=== PATIENT | female | born 1940 | race Caucasian/White ===

== ENCOUNTER 2023-10-18 19:25 | Inpatient (IN) | payer OTHER, SELFPAY ==
[2023-10-18 11:55] VITALS: BP 98/66
[2023-10-18 12:17] LABS: % Basophils 0.4 % (0-2); % Eosinophils 0.6 % (0-6); % Immature Granulocytes 0.8 % (0-0.5); % Monocytes 7.8 % (1.7-9.3); % Neutrophils 61.4 % (42.2-75.2); Absolute Lymphocytes 1.4 10^3/uL (1.2-3.4); Absolute Monocytes 0.4 10^3/uL (0.1-0.6); Absolute Neutrophils 2.9 10^3/uL (1.4-6.5); Hemoglobin 12.1 g/dL (12.0-16.0); Mean Corp Hgb Conc. 33.6 g/dL (33.0-37.0); Mean Corpuscular Hgb 24.1 pg (27.0-31.0); Mean Corpuscular Volume 71.7 fL (81.0-99.0); Nucleated Red Blood Cells % 0 %; Red Blood Cell Count 5.02 10^6/uL (4.20-5.40); White Blood Cell Count 4.8 10^3/uL (4.8-10.8)
[2023-10-18 12:25] LABS: ALT (SGPT) 12 U/L (0-35); AST (SGOT) 34 U/L (14-36); Albumin 3.8 g/dl (3.5-5.0); Alkaline Phosphatase 67 U/L (38-126); Blood Urea Nitrogen 17 mg/dl (7-17); Calcium 9.3 mg/dl (8.4-10.2); Carbon Dioxide 22 mmol/L (22-30); Chloride 98 mmol/L (98-107); Glucose 107 mg/dl (70-99); Lipase 171 U/L (23-300); Potassium 3.3 mmol/L (3.5-5.1); Sodium 130 mmol/L (135-145); Total Bilirubin 1.1 mg/dl (0.2-1.3); Total Protein 6.4 g/dl (6.3-8.2); eGFR > 60.00
--- NOTE | 2023-10-18 13:16 | ED.GENMED ---
History of Present Illness
General
Chief Complaint: Weakness
Source: patient
Exam Limitations: none
Time Seen by Provider: 10/18/23 13:14
Nursing documentation reviewed up to this point in time: agreed with
Travel History
Have you had any contact with someone who has COVID-19?: No
Do you have any symptoms of coronavirus? Fever > 100 degrees, chills, cough, shortness of breath, sore throat, loss of taste or smell, muscle aches, or headache?: No
History of Present Illness
History of Present Illness:
83-year-old female with history of A-fib on aspirin, lives alone in [facility]. Daughter who is at bedside states she calls her every morning. 3 weeks ago patient had a stomach bug with vomiting and diarrhea for 2 to 3 days, that
subsided. She has had diminished appetite with intermittent vomiting since. Daughter states the last several days that she is called her she sounded extremely weak and just not herself. Daughter drove out to pick her up yesterday and found her to
be very frail, fatigued, no appetite and with a seemingly significant weight loss.
Patient states she has been having upper abdominal pains for the past 3 to 4 days. She denies dysuria, urgency or frequency. She denies change in the color of her stool. She denies fever or chills. She states her baseline weight is 130 and
recently she weighed herself at 111 pounds.
Past History
Past History
ED Past Medical History: Arrthythmia (A fib on ASA)
ED Past Surgical History: Gynecological and Orthopedic
Social History
Tobacco: Non-smoker
Alcohol: None
Personal:
Living: alone (in [facility] daughter picked her up yesterday and brought her to stay with her)
Review of Systems
Review of Systems
Allergies reviewed?: Yes
All Other Systems: ROS reviewed and negative except as documented in HPI and ROS
Constitutional: Reports fatigue; Denies fever
Respiratory: Denies trouble breathing
Cardiac: Denies chest pain
ABD/GI: Reports abdominal pain and nausea; Denies vomiting, diarrhea, bloody stools, black stools or anorexia
: Denies dysuria, flank pain, difficulty voiding or urgency
Musculoskeletal: Denies edema
Skin: Reports no symptoms
Neurological: Reports no symptoms
Phy Exam
Physical Exam
Physical Exam:
GENERAL: No acute distress. Elderly and frail. A&Ox3.
CONSTITUTIONAL: Afebrile.
EYES: PERRL, conjunctivae normal
Neck: Supple
ENMT: moist mucus membranes, Pharynx nl
RESPIRATORY: Regular respirations, nonlabored, lungs clear.
CARDIOVASCULAR: Regular rate and rhythm, no murmurs, no rubs.
GI: Soft, generally tender, mild distention, hypoactive BS
Rectal: Brown heme positive stools
MUSCULOSKELETAL: Moves with ease. Well perfused. No edema
SKIN: Warm, dry, pale
PSYCH: Normal mood and affect. Well kept, interactive and appropriate
NEUROLOGIC: Awake, alert and oriented. No focal neurological deficits
Course
Orders/Labs/Results
Orders:
Orders
10/18/23 12:03
Complete Blood Count/With Diff Urgent
Comprehensive Metabolic Panel Urgent
Lipase Urgent
10/18/23 14:04
Urinalysis Reflex To Culture Urgent
Date Specimen was Collected: 10/18/23
Time Specimen was Collected: 13:18
Urine Microscopic Reflex Cult Urgent
Urine Culture Urgent
JUANITO Source: U
Specimen Description:
Date Specimen was Collected: 10/18/23
Time Specimen was Collected: 13:18
10/18/23 14:26
Ondansetron Injectable [Zofran] 4 mg IV NOW STA
10/18/23 14:27
CT Abd/pel W Iv And Oral Contr Urgent
Comment:
Reason For Exam: general abd pain, w loss, stool lisa +
0.9% Sodium Chloride 500 ml [Nss] 500 ml IV BOLUS
Iohexol [Omnipaque] See Protocol PO NOW STA
10/18/23 15:43
CefTRIAXone [Rocephin] 1,000 mg IV NOW STA
10/18/23 17:57
ColoRectal Surgery Consult Routine
Consulting Provider: Jose A Hay
Was physician already notified: Yes
10/18/23 18:04
Potassium Chloride [KCl] 40 meq Dextrose 5%/Water 250 ml [D5w] 250 ml IV NOW
10/18/23 18:08
INR [Prothrombin Time] Routine
10/18/23 18:35
CARDIOLOGY CONSULT Routine
Consulting Provider: Keenan De
Was physician already notified: Yes
10/18/23 18:39
Admit/Transfer Patient As Directed
Co-Sign Provider:
Level of Care: Inpatient admission
Assign to:: Telemetry
Physician / Group: Steven/hospitalist
Diagnosis: colon mass, SBO
Reason for Telemetry: Arrhythmia
Date to Stop Telemetry: 10/21/23
Time to Stop Telemetry: 11:00
Reason for Hospitalization: colon mass, SBO
Expected length of stay greater than two midnights?: Yes
ELOS- Estimated Length of Stay in days: 5
I certify the patient meets the requirements for IP care: Yes
10/18/23 18:40
Code Status As Directed
Resuscitation Status: Full Code
10/21/23 11:00
DC Protocol for Telemetry ONCE
Abnormal Lab Results
10/18/23 10/18/23
12:03 14:04
Hct 36.0 L %
(37.0-47.0)
MCV 71.7 L fL
(81.0-99.0)
MCH 24.1 L pg
(27.0-31.0)
RDW 16.0 H %
(11.5-14.5)
Immature Gran % 0.8 H %
(0-0.5)
Sodium 130 L mmol/L
(135-145)
Potassium 3.3 L mmol/L
(3.5-5.1)
Glucose 107 H mg/dl
(70-99)
Urine Ketones 1+ A
(Negative)
Ur Occult Blood Reflex Trace A
(Negative)
Urine Nitrite (Reflex) Positive A
(Negative)
Urine Bilirubin 1+ A
(Negative)
Urine Urobilinogen 2+ A
(Neg - 1+)
Leukocyte Esterase Rfl 2+ A
(Negative)
Urine RBC 3-6 A /HPF
(0-2)
Urine WBC (Reflex) 11-15 A /HPF
(0-5)
Urine Bacteria (Reflex) Many A
(Negative)
10/18/23 12:03
10/18/23 12:03
Vital Signs
Initial and Last Documented VS:
Initial Vital Signs
Temp Pulse Resp BP Pulse Ox
97.9 F 75 18 98/66 100
10/18/23 11:55 10/18/23 11:55 10/18/23 11:55 10/18/23 11:55 10/18/23 11:55
Last Documented Vital Signs
Temp Pulse Resp BP Pulse Ox
97.9 F 73 18 114/73 99
10/18/23 11:55 10/18/23 17:15 10/18/23 17:15 10/18/23 17:15 10/18/23 17:15
MDM/Problems Addressed
Differential Diagnosis Includes:
UTI, bowel obstruction, PUD,
MDM/Problems Addressed:
83-year-old female with history of A-fib on aspirin, lives alone in [facility]. Daughter who is at bedside states she calls her every morning. 3 weeks ago patient had a stomach bug with vomiting and diarrhea for 2 to 3 days, that
subsided. She has had diminished appetite with intermittent vomiting since. Daughter states the last several days that she is called her she sounded extremely weak and just not herself. Daughter drove out to pick her up yesterday and found her to
be very frail, fatigued, no appetite and with a seemingly significant weight loss.
Patient states she has been having upper abdominal pains for the past 3 to 4 days. She denies dysuria, urgency or frequency. She denies change in the color of her stool. She denies fever or chills. She states her baseline weight is 130 and
recently she weighed herself at 111 pounds.
Afebrile, NAD
10/18/2023 1429 PM
Tender to palpate across upper abdomen.
Stool brown, heme positive
CBC with no clinically significant abnormality
CMP with mild hyponatremia left mild hypokalemia otherwise normal
UA: Positive nitrites, positive leukocytes
10/18/2023 1541 PM urine microscopic back: 11-15 WBCs, many bacteria. Urine culture pending
Will give a dose of Rocephin IV. Patient gets hives with penicillin years ago, has taken cephalosporins in the past.
10/18/[address] abdomen pelvis with p.o. and IV contrast radiology report received: Bowel wall thickening of the cecum and proximal ascending colon consistent with malignancy until proven otherwise. Direct visualization is recommended.
There is subsequent distention of the small bowel loops proximal to the ileocecal valve, fluid-filled, consistent with partial small bowel obstruction due to the mass at the ascending colon and ileocecal valve. The appendix appears grossly within
normal limits.
Small amount of free fluid in the pelvis.
Solid organs unremarkable.
Pt and daughter notified of SBO and need for further exploration of possible cause
Plan: Admit to hospitalist partial small bowel obstruction:, Abdominal mass, UTI
Hospitalist notified of admission
*Critical Care Note
Total Time (30-74mins, 75-104mins- exclusive of procedures): Not Applicable
ED Attending Note
-
Portions of this chart may have been created with voice recognition software.� Occasional wrong word or��sound alike� substitutions may have occurred due to the inherent limitations of voice recognition software.
Discharge Plan
Departure
Patient Disposition: Admit
Date of Disposition: 10/18/23
Time of Disposition: 17:50
Admit to: Med/Surg
Presentation/result/management discussed w/ accepting MD/DO: Hospitalist
Condition: Fair
Discharge Problem:
SBO (small bowel obstruction), Abdominal mass
Prescriptions:
No Action
Theragen Tablet
1 tab PO DAILY
aspirin 81 mg Tablet,Delayed Release (Dr/Ec)
81 mg PO DAILY
warfarin 3 mg Tablet
3 mg PO SUWE@1700
warfarin 2 mg Tablet
2 mg PO SUMOTUTHFR@1700
Ocuvite Tablet
1 tab PO DAILY
rosuvastatin [Crestor] 5 mg Tablet
5 mg PO QPM
Multaq 400 mg Tablet
400 mg PO BID
omega 8-rmi-sow-fish oil [Fish Oil] 1,200 (144-216) mg Capsule
1 cap PO DAILY
Referrals:
UNKNOWN - PT DOES,NOT KNOW [Family Provider] -
Interventions
Interventions:
*Risk Screen - Suicide Last Done: 10/18/23 12:48
*General Assessment Last Done: 10/18/23 12:48
*Neglect/Abuse Screening Last Done: 10/18/23 12:48
ED- Fall Risk Assessment Last Done: 10/18/23 12:48
*ED COVID-19 Vaccine History Last Done: 10/18/23 12:48
ED- Cardiac Assessment Last Done: 10/18/23 12:48
ED- Neurological Assessment Last Done: 10/18/23 12:48
ED- Pulmonary Assessment Last Done: 10/18/23 12:48
[2023-10-18 14:16] LABS: Urine Albumin Trace (Neg - Trace); Urine Bilirubin 1+ (Negative); Urine Character Slightly Cloudy (Clear); Urine Color Yellow; Urine Glucose Negative (Negative); Urine Ketone 1+ (Negative); Urine Leukocyte 2+ (Negative); Urine Nitrite Positive (Negative); Urine Occult Blood Trace (Negative); Urine Specific Gravity 1.015 (<1.030); Urine Urobilinogen 2+ (Neg - 1+)
[2023-10-18 14:21] VITALS: BP 110/67
[2023-10-18 14:24] LABS: Urine Amorphous Seen
[2023-10-18 14:26] LABS: Urine Bacteria Many (Negative)
[2023-10-18] MEDS: OMNIPAQUE 50 ML PO (14:43)
[2023-10-18] MEDS: ZOFRAN 4 MG IV (14:43)
[2023-10-18] MEDS: NSS 500 IV (14:44)
[2023-10-18] MEDS: ROCEPHIN 1000 MG IV (16:11)
[2023-10-18 17:15] VITALS: BP 114/73
--- NOTE | 2023-10-18 17:57 | HPS.HSE ---
Family Physician
-
Family Physician: NOT KNOW UNKNOWN - PT DOES
Chief Complaint
-
Weakness, weight loss, decreased appetite, nausea and vomiting
History of Present Illness
HPI: 83-year-old female with history of A-fib on aspirin, lives alone in [facility] (daughter states she calls her every morning); p/w mild abdominal pain, decreased appetite, intermittent vomiting, and generalized weakness. She has also
noted significant unintentional weight loss (from baseline 130 pound to 111 pounds).
She denies to urinary symptoms, no fever/chills, chest pain/shortness of breath.
Medical History
Past Medical History
Past Medical History: Reports Other
Additional Past Medical History:
Atrial fibrillation
Past Surgical History: Reports Other
Additional Past Surgical History:
Ablation for atrial fibrillation
Right knee placement
section
Social History
Tobacco: Non-smoker
Alcohol: None
Living: Alone
Family History
Family History: Cancer (Grandfather had colon cancer)
Allergies / Home Medications
Allergies reflects when Allergies were last updated in [facility].
Home Medications with original date entered in [facility]
Allergy/Medication List:
Allergies
Allergy/AdvReac Type Severity Reaction Status Date / Time
Penicillins Allergy Unknown Verified 10/18/23 11:54
Sulfa (Sulfonamide Allergy Unknown Verified 10/18/23 11:54
Antibiotics)
Home Medications
aspirin 81 mg tablet,delayed release 81 mg PO DAILY 10/18/23
dronedarone 400 mg tablet (Multaq) 400 mg PO BID 10/18/23
omega 2-tdf-msr-fish oil 1,200 mg (144 mg-216 mg) capsule (Fish Oil) 1 cap PO DAILY 10/18/23
rosuvastatin 5 mg tablet (Crestor) 5 mg PO QPM 10/18/23
therapeutic multivitamin 1 tab PO DAILY 10/18/23
vitamin A-vitamin C-vit E-min tablet 1 tab PO DAILY 10/18/23
warfarin 2 mg tablet 2 mg PO SUMOTUTHFR@1700 10/18/23
warfarin 3 mg tablet 3 mg PO SUWE@1700 10/18/23
Review of Systems
-
Constitutional: Reports See HPI
Abdomen/GI: Reports See HPI, Abdominal Pain, Nausea and Vomiting
Physical Exam
Vital Signs
Vital Signs
Temp Pulse Resp BP Pulse Ox
36.6 C 73 18 114/73 99
10/18/23 11:55 10/18/23 17:15 10/18/23 17:15 10/18/23 17:15 10/18/23 17:15
Physical Exam
General: Well Developed, No Apparent Distress, Comfortable, Conversant and Appears Chronically Ill
HEENT: NormoCephalic, Moist mucous membranes and Atraumatic
Respiratory: Clear and Non Labored Respirations; No Accessory Resp Muscle Use
Cardiac: S1/S2 and Regular Rhythm; No Murmur or Rub
GI: Soft, Non Tender, Normal Bowel Sounds and Distended; No Organomegaly
Rectal: Deferred by Provider
Musculoskeletal: No Clubbing, No Cyanosis and No Edema
Skin: No Rash
Neuro: Awake, Alert and Oriented
Psych: Calm and Intact Judgment/Insight
Laboratory Results
-
10/18/23 12:03
10/18/23 12:03
Laboratory Results
Total Bilirubin 1.1 mg/dl (0.2-1.3) 10/18/23 12:03
AST 34 U/L (14-36) 10/18/23 12:03
ALT 12 U/L (0-35) 10/18/23 12:03
Alkaline Phosphatase 67 U/L (38-126) 10/18/23 12:03
Lipase 171 U/L (23-300) 10/18/23 12:03
Data Reviewed
-
CT Scan: Report Reviewed by me, Discussed with Patient and Discussed with Family
Lab Data: Labs Reviewed by me
Impression/Plan
-
HPI: 83-year-old female with history of A-fib on aspirin, lives alone in [facility] (daughter states she calls her every morning); p/w mild abdominal pain, decreased appetite, intermittent vomiting, and generalized weakness. She has also
noted significant unintentional weight loss (from baseline 130 pound to 111 pounds).
She denies to urinary symptoms, no fever/chills, chest pain/shortness of breath.
In ER, her CT AP obtained is concerning for proximal ascending colon and cecal mass, with associated proximal small bowel obstruction.
CT AP:
1. � Bowel wall thickening of the cecum and proximal ascending colon consistent with malignancy until proven otherwise. Direct visualization is recommended.
2. � There is subsequent distention of the small bowel loops proximal to the ileocecal valve, fluid-filled, consistent with partial small bowel obstruction due to the mass at the ascending colon and ileocecal valve. The appendix appears grossly
within normal limits.
3. � Small amount of free fluid in the pelvis.
4. � Solid organs unremarkable.
A/P:
# Abdominal pain, unintentional weight loss, generalized weakness, decreased appetite, nausea/intermittent vomiting; likely due to underlying proximal ascending colon and cecal mass with associated proximal small bowel obstruction.
N.p.o. for now
Colorectal surgery eval
Cardiology consult for preop clearance and A-fib management
Patient will need eventual oncology consult
# A-fib (unclear type) on Coumadin
Hold prior to admission Coumadin
Check INR
monitor daily INR level
Cardiology consult for preop clearance and A-fib management
# Hypokalemia
Replete IV
# Asymptomatic bacteriuria
Patient without urinary symptoms
Urine culture was sent in ER, follow-up
Status post 1 dose of ceftriaxone, hold further antibiotic for now
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
FC
[2023-10-18 18:36] LABS: INR 2.41; PT 26.1 Sec (11.4-14.6)
[2023-10-18] MEDS: KCL 270 MEQ IV (19:05)
[2023-10-18 20:18] VITALS: BP 121/72
[2023-10-18 22:01] VITALS: BP 124/67; BMI 19.3
[2023-10-18 22:16] VITALS: BMI 19.3
[2023-10-18 23:00] VITALS: BP 105/56
[2023-10-18] MEDS: NSS 1000 IV (23:15)
[2023-10-19] VITALS (17 sets, daily range): BP systolic 99–120; BP diastolic 48–60; BMI 19.3
[2023-10-19] MEDS: ZOFRAN 4 MG IV (03:39)
[2023-10-19 06:08] LABS: Hematocrit 31.7 % (37.0-47.0); Hemoglobin 10.2 g/dL (12.0-16.0); Mean Corp Hgb Conc. 32.2 g/dL (33.0-37.0); Mean Corpuscular Hgb 23.8 pg (27.0-31.0); Mean Corpuscular Volume 74.1 fL (81.0-99.0); Mean Platelet Volume 9.4 fL (7.4-10.4); Platelet Count 263 10^3/uL (130-400); Red Blood Cell Count 4.28 10^6/uL (4.20-5.40); Red Cell Dist. Width 16.3 % (11.5-14.5); White Blood Cell Count 6.5 10^3/uL (4.8-10.8)
[2023-10-19 06:19] LABS: INR 2.62; PT 27.9 Sec (11.4-14.6)
[2023-10-19 06:36] LABS: Blood Urea Nitrogen 13 mg/dl (7-17); Calcium 8.6 mg/dl (8.4-10.2); Carbon Dioxide 22 mmol/L (22-30); Chloride 99 mmol/L (98-107); Estimated Creatinine Clearance 41 ml/min; Glucose 99 mg/dl (70-99); Potassium 3.7 mmol/L (3.5-5.1); Sodium 131 mmol/L (135-145); eGFR > 60.00
--- NOTE | 2023-10-19 07:26 | CON.CAR ---
Addendum entered and electronically signed by Conor Mejias DO 10/19/23 17:26:
I saw and examined the patient.
The Electrical Engineering Intern's note was reviewed and I agree with the note.
Comment:
Plan:
Pt denied chest or palpitations. She has had a recent stress test done in the last 1-2 yrs for hx AFib that was ok she states.
Requested records. Pt with hx of PVI.
Check echo. As long as there are not significant findings with her echo she is acceptable risk for surgery.
Remains in sinus on Multaq. Anticoagulation held in anticipation of procedure.
She is moderate risk given comorbidities and urgent need for surgery but acceptable as she is compensated.
Reviewed with pt and daughter at bedside.
Original Note:
Consultation
Consultation Request
Date/Time Consultation Requested: 10/18/23 at 1835
Date/Time Consultation Performed: 10/19/23 at 0730
Requesting Provider: Dr. Rosario
Performing Provider: Dr. Mejias
Reason for Consultation: Pre-operative cardiovascular evaluation
Medical History
-
History of Present Illness:
Patient came to [facility] yesterday with weight loss and is now admitted for colon surgery due to malignancy and cardiology has been consulted for preoperative evaluation. Patient lives in [place], [place] which is about 2 hours away from , but her
daughter lives locally in [place], [place] and brought patient to [facility] yesterday after never being previously evaluated in the system. Patient has been treated in the [facility] system and followed by cardiology there for a h/o paroxysmal Afib. Patient
does not have access to a portal with patient information, but called her senior production manager's office to get records and they in turn asked for a medical records release further delaying access to her pertinent cardiac history. Records are being faxed
now.
PMH:
Paroxysmal Afib
Chronic warfarin OAC
Chronic Multaq therapy
Past Medical History
Past Medical History: Other (in HPI)
Past Surgical History: and Orthopedic
Social History
Tobacco: Non-Smoker
Alcohol: None
Drug: None
Living: Alone
Family History
Family History: Reviewed & Not Pertinent
Allergies / Home Medications
Allergy/AdvReac Type Severity Reaction Status Date / Time
Penicillins Allergy Unknown Verified 10/18/23 11:54
Sulfa (Sulfonamide Allergy Unknown Verified 10/18/23 11:54
Antibiotics)
Medication Instructions Recorded Confirmed Type
aspirin 81 mg tablet,delayed 81 mg PO DAILY 10/18/23 10/18/23 History
release
dronedarone 400 mg tablet (Multaq) 400 mg PO BID 10/18/23 10/18/23 History
omega 6-two-grm-fish oil 1,200 mg 1 cap PO DAILY 10/18/23 10/18/23 History
(144 mg-216 mg) capsule (Fish Oil)
rosuvastatin 5 mg tablet (Crestor) 5 mg PO QPM 10/18/23 10/18/23 History
therapeutic multivitamin 1 tab PO DAILY 10/18/23 10/18/23 History
vitamin A-vitamin C-vit E-min 1 tab PO DAILY 10/18/23 10/18/23 History
tablet
warfarin 2 mg tablet 2 mg PO SUMOTUTHFR@1700 10/18/23 10/18/23 History
warfarin 3 mg tablet 3 mg PO SUWE@1700 10/18/23 10/18/23 History
Review of Systems
-
History Source: Patient
All other systems: Negative unless noted
Physical Exam
Vital Signs
Temp Pulse Resp BP Pulse Ox
99.1 F 66 16 105/58 97
10/19/23 03:25 10/19/23 03:25 10/19/23 03:25 10/19/23 03:25 10/19/23 03:25
GEN: NAD. AAO to person, place and situation
HEENT: EOMI, MMM
LUNGS: Clear anterolaterally
CV: Reg, no murmur
ABD: soft, BS+
EXT: No clubbing, cyanosis, lesions or edema B/L
NEURO: Gross non-focal
SKIN: Warm, dry and pink. No rash
Lab Results
10/19/23 05:43
10/19/23 05:43
Impression / Plan
-
PCP: In [place], [place]
Cardiology: Dr. Hernandez at [facility]
Impression:
Admitted with newly diagnosed proximal ascending colon and cecal mass 10/18/23
Weight loss
Paroxysmal Afib
Chronic warfarin OAC
Chronic Multaq therapy
Hypokalemia
Hyponatremia
Plan:
-Patient came to [facility] yesterday with weight loss and is now admitted for colon surgery due to malignancy and cardiology has been consulted for preoperative evaluation. Patient lives in [place], [place] which is about 2 hours away from , but her
daughter lives locally in [place], [place] and brought patient to [facility] yesterday after never being previously evaluated in the system. Patient has been treated in the [facility] system and followed by cardiology there for a h/o paroxysmal Afib. Patient
does not have access to a portal with patient information, but called her senior production manager's office to get records and they in turn asked for a medical records release further delaying access to her pertinent cardiac history. Records are being faxed
now.
-Check ECG, none performed thus far this admission.
-Records requested from her senior production manager in [place] and they required a signed records release be sent before sending the records which is further delaying cardiac clearance. Await arrival of records.
-If recent echo is not included in records then will obtain in AM.
-There is a h/o paroxysmal Afib. Patient is in SR on tele. Will follow.
-Would continue Multaq 400 mg BID for now in an effort to maintain SR.
-Warfarin is being reversed with FFP by Hospitalist attending. There is no h/o thromboembolic event.
-If patient will be NPO post-op then would add Lopressor 5 mg IV q 6 hours.
--- NOTE | 2023-10-19 07:59 | W.PN.HOSP.TC ---
Today's Communication/Plan
-
FFP to reverse INR. Cardiology for preop eval. Plan for colon surgery
Assessment / Plan
Assessment / Plan
Physical exam:
General: Underweight. Chronically ill.
HEENT: Normocephalic, Atraumatic and Moist Mucous Membranes
Respiratory: Clear to Auscultation; Negative Wheezes, Rales or Rhonchi
Cardiac: Regular Rhythm and S1/S2
GI: Soft, Nontender and Nondistended
Musculoskeletal: No Clubbing, No Cyanosis and No Edema
Neuro: Awake, Alert and Oriented
Psych: Calm
A/P:
A/P:
# Abdominal pain, unintentional weight loss, generalized weakness, decreased appetite, nausea/intermittent vomiting; likely due to underlying proximal ascending colon and cecal mass with associated proximal small bowel obstruction. Likely
malignancy:
N.p.o. for now
Colorectal surgery eval
Cardiology consult for preop eval and A-fib management
Obtain twelve-lead EKG preop
Updated daughter at bedside today
Discussed with colorectal surgery and planning to do surgery over the next 24 hours.
# Paroxysmal A-fib:
Hold prior to admission Coumadin
Check INR in 2.62 today
Transfuse with 2 to 4 units of FFP's to reverse INR
Recheck INR in a.m.
Cardiology consult for preop clearance and A-fib management
# Hypokalemia:
Potassium 3.7 today
# Asymptomatic bacteriuria
E. coli in the urine
Agree, no need for antibiotics unless symptomatic.
Monitor temp and WBC
#Moderate protein calorie malnutrition/underweight:
Monitor calorie intake when appropriate
#Anemia:
Hemoglobin 10.2 today
There could be an element of dilutional component but obtain anemia workup in am
Monitor hemoglobin closely
#Hyponatremia:
Sodium 131 today
Continue to monitor
DVT ppx:
Discontinue Lovenox (INR therapeutic) and add SCDs
CODE STATUS:
Full code
Total time spent on today's encounter was 52 minutes which included time spent in counseling the patient/family regarding diagnosis and treatment plan as listed above, goals of care, and symptom management. Case was discussed with nursing staff,
specialists, and care coordinators/case management. All labs and imaging personally reviewed by me. Remainder the time spent in detailed review of previous records, lab data, imaging, and other medical provider documentation.
Anticipated Discharge: > 48 hours
Subjective/Interval History
-
Date of Service: October 19, 2023
Patient alert and oriented today. Denies chest pain or shortness of breath. Denies vomiting today.
Objective Data
-
Labs:
Laboratory Results
10/19/23
05:43
WBC 6.5
Hgb 10.2 L
Hct 31.7 L
Plt Count 263
PT 27.9 H
INR 2.62
Sodium 131 L
Potassium 3.7
Chloride 99
Carbon Dioxide 22
BUN 13
Creatinine 0.8
Glucose 99
Calcium 8.6
Vital Signs:
Vital Signs
Temp Pulse Resp BP Pulse Ox
99.1 F 66 16 105/58 97
10/19/23 03:25 10/19/23 03:25 10/19/23 03:25 10/19/23 03:25 10/19/23 03:25
I&O
10/18/23 10/19/23 10/20/23
06:59 06:59 06:59
Intake Total 480 / 480
Balance 480 / 480
Review of Systems
-
All other systems: Reviewed and negative
[2023-10-19] MEDS: ASPIR LOW (ENTERIC COATED) 81 MG PO (08:12)
--- NOTE | 2023-10-19 08:37 | CON.CRS ---
Addendum entered and electronically signed by Marko Cui MD 10/19/23 14:33:
I saw and examined the patient.
The PA's note was reviewed and I agree with the note.
Comment:
Patient seen in a.m. with PA.
History, vitals, labs, and imaging reviewed. Patient seen and examined with daughter at bedside.
83-year-old female with obstructing cecal mass confirmed radiographically. 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 No obvious hepatic metastases on CT. It is however quite bulky and there is certainly obstruction related to it radiographically. She has
had Colonoscopies in the past but it has been at least 5 years or more. Denies history of polyps. Denies family or personal history of colon cancer. She is also fully anticoagulated on Coumadin with an INR of 2.6. I discussed the situation with
the patient and her daughter in detail. 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 Recommended consideration for open right colectomy after reversal of anticoagulation. I have tentatively posted the surgery for
tomorrow late morning/early afternoon. I related that if surgery is not performed she risks worsening obstruction/perforation. Communicate with Dr. Kramer of the hospitalist service who will reverse her INR today. Will hold on NG tube placement
today given risk of nasopharyngeal bleeding, however anticipate having 1 placed tomorrow morning preoperatively to minimize the risk of aspiration. Operation itself was discussed with the patient and her daughter in detail including risk and
benefits. Risk discussed included but were not limited to bleeding infection anastomotic leak anastomotic stricture ureteral injury bowel or solid organ injury hernia formation recurrence of the cancer if one is present and anesthetic risks. The
patient agrees to proceed. All questions answered.
Thanks.
Original Note:
Consultation
-
Date/Time Consultation Requested: 10/18/2023, 17:57
Date/Time Consultation Performed: 10/19/2023, 09:30
Requesting Provider: Ragini Harris MD
Performing Provider: Marko Cui MD
Reason for Consultation: cecal mass
Medical History
-
Chief Complaint: Abdominal pain
History of Present Illness:
83-year-old female presents the emergency department on 10/18/2023 complaining of abdominal pain, decreased appetite, vomiting, and generalized weakness. She has also lost about 19 pounds in the past month. The patient lives alone in [place] and her daughter calls her every morning. The patient had a stomach virus 3 weeks ago with diarrhea for 2 or 3 days which has resolved. Since then she has had intermittent vomiting. The daughter called her a few days ago and she did
not sound like herself, and the daughter drove out to see her and took her back to [facility]. She is currently on Coumadin due to atrial fibrillation and her INR is 2.62.
The patient states her last colonoscopy was 'at least 5 years ago' and there were no findings on it. Her grandfather had colon polyps but is unable to elaborate further. She had a previous but no other abdominal surgeries. Her bowel
movements are daily and are unchanged. She denies bloody or dark stools. She denies feeling bloated and currently had no pain.
In the ER her WBC is 4.8. A CT shows bowel wall thickening of the cecum and proximal ascending colon consistent with malignancy until proven otherwise. Direct visualization is recommended. There is subsequent distention of the small bowel loops
proximal to the ileocecal valve, fluid-filled, consistent with partial small bowel obstruction due to the mass at the ascending colon and ileocecal valve. The appendix appears grossly within normal limits. Given this finding, we have been consulted
for further surgical opinion.
Past Medical History
Past Medical History: Arrhythmias (Atrial fibrillation)
Past Surgical History: Cardiac (Ablation for atrial fibrillation), and Orthopedic (Right knee placement)
Social History
Tobacco: Non-Smoker
Alcohol: None
Drug: None
Family History
Family History: Reviewed & Not Pertinent
Allergies / Home Medications
Allergy/AdvReac Type Severity Reaction Status Date / Time
Penicillins Allergy Unknown Verified 10/18/23 11:54
Sulfa (Sulfonamide Allergy Unknown Verified 10/18/23 11:54
Antibiotics)
Medication Instructions Recorded Confirmed Type
aspirin 81 mg tablet,delayed 81 mg PO DAILY 10/18/23 10/18/23 History
release
dronedarone 400 mg tablet (Multaq) 400 mg PO BID 10/18/23 10/18/23 History
omega 4-jmq-kmu-fish oil 1,200 mg 1 cap PO DAILY 10/18/23 10/18/23 History
(144 mg-216 mg) capsule (Fish Oil)
rosuvastatin 5 mg tablet (Crestor) 5 mg PO QPM 10/18/23 10/18/23 History
therapeutic multivitamin 1 tab PO DAILY 10/18/23 10/18/23 History
vitamin A-vitamin C-vit E-min 1 tab PO DAILY 10/18/23 10/18/23 History
tablet
warfarin 2 mg tablet 2 mg PO SUMOTUTHFR@1700 10/18/23 10/18/23 History
warfarin 3 mg tablet 3 mg PO SUWE@1700 10/18/23 10/18/23 History
Review of Systems
-
History Source: Patient and Family
Constitutional: Weight Loss
Abdomen/GI: Abdominal Pain, Vomiting and Anorexia
A 10 point review of systems was completed, and was negative except as per HPI.
Physical Exam
Vital Signs
Temp 98.7 F 10/19/23 07:50
Pulse 71 10/19/23 07:50
Resp Rate 18 10/19/23 07:50
Blood pressure 115/57 10/19/23 07:50
SaO2 97 10/19/23 07:50
10/18/23 10/19/23 10/20/23
06:59 06:59 06:59
Actual Weight 47.797 kg
Body Mass Index (BMI) 19.3
Lab Results / Allergies
10/19/23 05:43
10/19/23 05:43
WBC 6.5 10^3/uL (4.8-10.8) 10/19/23 05:43
Hgb 10.2 g/dL (12.0-16.0) L 10/19/23 05:43
Hct 31.7 % (37.0-47.0) L 10/19/23 05:43
Plt Count 263 10^3/uL (130-400) 10/19/23 05:43
Abs Immat Gran (auto) 0.0 10^3/uL (0-0.05) 10/18/23 12:03
Neutrophils % 61.4 % (42.2-75.2) 10/18/23 12:03
Allergy/AdvReac Type Severity Reaction Status Date / Time
Penicillins Allergy Unknown Verified 10/18/23 11:54
Sulfa (Sulfonamide Allergy Unknown Verified 10/18/23 11:54
Antibiotics)
Physical Exam
General: Well Developed
GI: Soft
Skin: Warm and Dry
Neuro: AO x 3
Psych: Calm
Data Reviewed
-
CT Scan: Image Personally Visualized and interpreted, Report Reviewed by me and Discussed with Nurse
Labs: Labs Reviewed by me, Discussed with Physician and Discussed with Patient
Assessment / Plan
-
Assessment: 83yo female with vomiting, abdominal pain, on Coumadin due to atrial fibrillation with a proximal ascending colon and cecal mass with associated proximal small bowel obstruction.
Plan:
1. Given finding of a cecal mass with SBO, plan is for open right colectomy tomorrow early afternoon. Discussed at length with patient and her daughter who are present at bedside.
2. CEA ordered.
3. Will need to have INR reversed, given Coumadin usage. Discussed with Dr. Rosario who will order FFP.
4. Remain NPO.
5. Given her SBO and vomiting, an NGT would be preferred. However, given INR, will hold for now. Anticipate placing tomorrow morning prior to OR.
6. Pre-op OR arrangements in place.
--- NOTE | 2023-10-19 15:08 | CM ---
Alert awake oriented patient who lives alone in a independent living [facility] 2 hours from here. She was independent in driving and all activities of daily living.Daughter [address] near by at [address] [facility] [address]. She said she will have
surgery tomorrow for SBO. She will need PT OT ordered postop to assist with dc plan. She will be staying with daughter at discharge.
No SNF/VN hx
Pharmacy [facility]
PCP [facility]
PLAN Will need PT OT postop Probable VN
[2023-10-19] MEDS: NSS 1000 IV (23:02)
--- NOTE | 2023-10-19 23:55 | PTCARENOTE ---
2 units of FFP transfused without any signs/symptoms of reaction. VSS. VAT RN placed new PIV to RFA in between transfusions as the pt was experiencing discomfort at the site. Will continue to closely monitor.
[2023-10-20] VITALS (16 sets, daily range): BP systolic 96–122; BP diastolic 40–69
--- NOTE | 2023-10-20 03:02 | PTCARENOTE ---
Pt received from previous shift in bed. AAOx3, family at bedside. Telemetry = Sbrady/1st degree AV block/prolonged QT. Full physical assessment documented (refer to worklist). FFP transfused per order without incident. IVF infusing via #22 RFA
without complication. Bed alarm active for safety. Call gutierrez within reach. Will continue to closely monitor.
[2023-10-20] MEDS: ZOFRAN 4 MG IV (04:49)
[2023-10-20 05:03] LABS: % Basophils 0.2 % (0-2); % Eosinophils 0.9 % (0-6); % Immature Granulocytes 0.7 % (0-0.5); % Lymphocytes 22.2 % (20.5-51.1); % Monocytes 10.1 % (1.7-9.3); % Neutrophils 65.9 % (42.2-75.2); Absolute Monocytes 0.5 10^3/uL (0.1-0.6); Absolute Neutrophils 2.9 10^3/uL (1.4-6.5); Hematocrit 27.3 % (37.0-47.0); Hemoglobin 8.8 g/dL (12.0-16.0); Mean Corp Hgb Conc. 32.2 g/dL (33.0-37.0); Mean Corpuscular Hgb 24.3 pg (27.0-31.0); Mean Corpuscular Volume 75.4 fL (81.0-99.0); Mean Platelet Volume 9.8 fL (7.4-10.4); Nucleated Red Blood Cells % 0 %; Platelet Count 204 10^3/uL (130-400); Red Blood Cell Count 3.62 10^6/uL (4.20-5.40); Red Cell Dist. Width 16.3 % (11.5-14.5); White Blood Cell Count 4.5 10^3/uL (4.8-10.8)
--- NOTE | 2023-10-20 05:06 | PTCARENOTE ---
Complete bed bath, linen change, and 1st set of CHG cloths used. EKG completed. During care, pt vomited a moderate amount of brown emesis, incontinent of small amount of mucoid liquid stool. IV antiemetic administered per MD order (refer to MAR).
Will continue to closely monitor.
[2023-10-20 05:14] LABS: INR 1.58; PT 18.7 Sec (11.4-14.6)
[2023-10-20 05:15] LABS: APTT 44.7 Sec (23.4-35.0)
[2023-10-20 05:48] LABS: Blood Urea Nitrogen 10 mg/dl (7-17); Calcium 8.6 mg/dl (8.4-10.2); Carbon Dioxide 22 mmol/L (22-30); Chloride 99 mmol/L (98-107); Estimated Creatinine Clearance 41 ml/min; Glucose 71 mg/dl (70-99); Iron 41 ug/dl (37-170); Potassium 3.3 mmol/L (3.5-5.1); Sodium 135 mmol/L (135-145); eGFR > 60.00
[2023-10-20 05:59] LABS: Percent Saturation 13 % (20-50); Total Iron Binding Capacity 311 ug/dl (265-497)
[2023-10-20 06:17] LABS: CEA 43.9 ng/ml
[2023-10-20 06:49] LABS: Folate 8.2 ng/ml (2.76-20); Vitamin B12 472 pg/ml (239-931)
--- NOTE | 2023-10-20 08:39 | W.PN.HOSP.TC ---
Today's Communication/Plan
-
Plan for colorectal surgery today.
Assessment / Plan
Assessment / Plan
Physical exam:
General: Underweight. Chronically ill.
HEENT: Normocephalic, Atraumatic and Moist Mucous Membranes
Respiratory: Clear to Auscultation; Negative Wheezes, Rales or Rhonchi
Cardiac: Regular Rhythm and S1/S2
GI: Soft, Diminished BS, Nontender and Nondistended
Musculoskeletal: No Clubbing, No Cyanosis and No Edema
Neuro: Awake, Alert and Oriented, no neuro-deficits.
Psych: Anxious, normal judgment and insight
A/P:
A/P:
Proximal ascending colon and cecal mass likely malignancy with associated proximal small bowel obstruction--> cont n.p.o., ivf, colorectal surgery consult appreciated, NG tube placed today, plan for colon surgery today. CEA 43.9. Discussed with
both daughters at bedside today.
Preop eval-->cardiology consult for preop eval appreciated, unremarkable echo, per cardio stable for surgery and cont tele.
Paroxysmal A-fib--> currently in sinus rhythm, status post FFP's, INR today 1.58, continue hold warfarin/asa, resume Multaq when tolerating po.
Hypokalemia-->IV KCL, trend in a.m.
Asymptomatic E. coli bacteriuria--> no need for antibiotic
Moderate protein calorie malnutrition/underweight--> monitor nutrition
Anemia-->hb 8.8 today, reviewed iron studies and normal B12 and folate.
Hyponatremia-->sodium 131 today, continue to monitor
DVT ppx-->SCDs for now
CODE STATUS-->Full code
Anticipated Discharge: > 48 hours
Subjective/Interval History
-
Date of Service: October 20, 2023
Patient with some discomfort and had NG tube placed this morning. No chest pain or shortness of breath.
Objective Data
-
Labs:
Laboratory Results
10/20/23
04:09
WBC 4.5 L
Hgb 8.8 L
Hct 27.3 L
Plt Count 204 D
PT 18.7 H
INR 1.58
APTT 44.7 H
Sodium 135
Potassium 3.3 L
Chloride 99
Carbon Dioxide 22
BUN 10
Creatinine 0.8
Glucose 71
Calcium 8.6
Vital Signs:
Vital Signs
Temp Pulse Resp BP Pulse Ox
98.4 F 64 16 106/54 97
10/20/23 03:33 10/20/23 03:33 10/20/23 03:33 10/20/23 03:33 10/20/23 03:33
I&O
10/19/23 10/20/23 10/21/23
06:59 06:59 06:59
Intake Total 480 / 480 1121 / 1121
Balance 480 / 480 1121 / 1121
Review of Systems
-
All other systems: Reviewed and negative
[2023-10-20] MEDS: KCL 270 MEQ IV (08:51)
--- NOTE | 2023-10-20 09:36 | W.PN.UPDATE ---
Update Note
Progress Note Update
Patient seen at bedside. She is scheduled for OR today. Her INR is 1.56 today status post 3 units of FFP. Remain NPO. NGT to be placed for decompression prior to OR. Remain NPO. Discussed with nursing. All questions answered.
--- NOTE | 2023-10-20 10:29 | W.PN.CARDCBS ---
Today's Communication / Plan
-
Stable to proceed with surgery. Echo with preserved ejection fraction and mild valve disease.
Continue telemetry.
Resume Multaq when able to tolerate p.o. medication.
will follow
Impression / Plan
-
[place]
Cardiology: Dr. Hernandez at [facility]
Impression:
Admitted with newly diagnosed proximal ascending colon and cecal mass 10/18/23
Weight loss
Paroxysmal Afib
Chronic warfarin OAC
Chronic Multaq therapy
Hypokalemia
Hyponatremia
Echo: 10/20/23: EF 70%, Mild MR, aortic sclerosis
Plan:
Echo with preserved ejection fraction and no significant valve disease. She is stable to proceed with her valve surgery. She will be moderate risk.
Continue to follow on telemetry. Restart Multaq when able to tolerate p.o. medication.
Would start Lopressor 2.5 mg IV every 6 as needed postoperatively.
Would resume Coumadin when okay with surgery.
Progress Note - Health Technical Writer
Subjective
Date of Service: October 20, 2023
NO chest pains/sob.
Objective
Labs:
10/20/23 04:09
10/20/23 04:09
Labs
Hgb 8.8 g/dL (12.0-16.0) L 10/20/23 04:09
Hct 27.3 % (37.0-47.0) L 10/20/23 04:09
Plt Count 204 10^3/uL (130-400) D 10/20/23 04:09
PT 18.7 Sec (11.4-14.6) H 10/20/23 04:09
INR 1.58 10/20/23 04:09
APTT 44.7 Sec (23.4-35.0) H 10/20/23 04:09
Sodium 135 mmol/L (135-145) 02/13/24 04:09
Potassium 3.3 mmol/L (3.5-5.1) L 10/20/23 04:09
BUN 10 mg/dl (7-17) 10/20/23 04:09
Creatinine 0.8 mg/dL (0.6-1.0) 10/20/23 04:09
Glucose 71 mg/dl (70-99) 10/20/23 04:09
Vital Signs and I&O:
Vital Signs
Temp Pulse Resp BP Pulse Ox
98.0 F 57 18 104/44 98
10/20/23 07:46 10/20/23 07:46 10/20/23 07:46 10/20/23 07:46 10/20/23 07:46
Vital Signs
Temp Pulse Resp BP Pulse Ox
98.0 F 57 18 104/44 98
10/20/23 07:46 10/20/23 07:46 10/20/23 07:46 10/20/23 07:46 10/20/23 07:46
Intake & Output
10/18/23 10/19/23 10/20/23 10/21/23
06:59 06:59 06:59 06:59
Intake Total 480 / 480 1121 / 1121
Balance 480 / 480 1121 / 1121
Physical Exam
Physical Exam
GEN: No distress, awake, Ox3
HEENT: supple, anicteric, mmm
LUNGS: CTA, no wheezes/rales
CV: Reg, S1/S2, 1/6 syst LSB, no gallop
ABD: soft, BS+, + tenderness
EXT: No edema
NEURO: Gross non-focal
SKIN: No rash
--- NOTE | 2023-10-20 12:10 | CM ---
CM following re: discharge planning.
Reviewed pt's chart, met with pt. Pt is scheduled for OR today, remains NPO.
PT and OT will evaluate the pt postop to determine a level of care at discharge.
D/C plan: OR today. PT/OT to evaluate to determine a level of care at discharge.
CM will follow with discharge plan updates as hospitalization progresses
[2023-10-20] MEDS: INVANZ 60 MG IV (12:58)
--- NOTE | 2023-10-20 14:48 | W.IMMPOSTOP ---
Surgical Immed Post Op Note
-
Primary Surgeon: Yoselin Cui MD
Assisting Surgeon: KIP Allison
Pre-op Diagnosis: obstructing cecal mass
Post-op Diagnosis: same
Procedure Performed: right colectomy
Anesthesia Type: general plus local
Specimen / Cultures: right colon
Estimated Blood Loss: 50 cc
Complications: no immediate
Operative Findings: 1) obstructing cecal mass with proximal small bowel dilation 2) no obvious peritoneal nor hepatic metastases
Vázquez in bladder.
NGT confirmed in stomach intraoperatively.
Will send back to 2S on telemetry.
[2023-10-20] MEDS: NSS 1000 IV (15:28)
[2023-10-20 15:29] LABS: % Basophils 0.1 % (0-2); % Eosinophils 0.1 % (0-6); % Immature Granulocytes 1.5 % (0-0.5); % Lymphocytes 14.3 % (20.5-51.1); % Monocytes 2.8 % (1.7-9.3); % Neutrophils 81.2 % (42.2-75.2); Absolute Immature Granulocytes 0.1 10^3/uL (0-0.05); Absolute Lymphocytes 1.2 10^3/uL (1.2-3.4); Absolute Monocytes 0.2 10^3/uL (0.1-0.6); Absolute Neutrophils 6.9 10^3/uL (1.4-6.5); Hematocrit 35.2 % (37.0-47.0); Hemoglobin 11.2 g/dL (12.0-16.0); Mean Corp Hgb Conc. 31.8 g/dL (33.0-37.0); Mean Corpuscular Volume 75.4 fL (81.0-99.0); Nucleated Red Blood Cells % 0 %; Platelet Count 256 10^3/uL (130-400); Red Blood Cell Count 4.67 10^6/uL (4.20-5.40); Red Cell Dist. Width 16.5 % (11.5-14.5); White Blood Cell Count 8.6 10^3/uL (4.8-10.8)
[2023-10-20 15:52] LABS: Blood Urea Nitrogen 9 mg/dl (7-17); Carbon Dioxide 15 mmol/L (22-30); Chloride 103 mmol/L (98-107); Estimated Creatinine Clearance 47 ml/min; Glucose 89 mg/dl (70-99); Magnesium 2.8 mg/dl (1.6-2.3); Potassium 4.3 mmol/L (3.5-5.1); Sodium 134 mmol/L (135-145); eGFR > 60.00
[2023-10-20] MEDS: TORADOL 10 MG IV ×2 (17:42→23:16)
--- NOTE | 2023-10-20 18:15 | PTCARENOTE ---
pt returned from PACU at 1730. pt awake, alert and falls back to sleep quickly. VSS. daughters at bedside. denies c/o abdominal discomfort. aquacell surgical dressing intact to middle abdomen. Vázquez patent and draining clear yellow urine.
Right nare NGT patent to ow intermittent suction-minimal amount-brown liquid in tubing. NPO w/IVF infusing. will monitor.
[2023-10-20] MEDS: OFIRMEV 100 IV (21:03)
[2023-10-21] VITALS (7 sets, daily range): BP systolic 97–119; BP diastolic 47–97; PULSE 67; O2SAT 98
[2023-10-21] MEDS: NSS 1000 IV ×2 (01:43→11:49)
[2023-10-21] MEDS: OFIRMEV 100 IV ×3 (01:45→14:32)
[2023-10-21] MEDS: TORADOL 10 MG IV ×4 (04:48→22:35)
--- NOTE | 2023-10-21 05:44 | PTCARENOTE ---
Pt received from previous shift in bed. AAOx3, very drowsy but arousable to voice. Telemetry = SR w/prolonged QT. Full physical assessment documented. Pt tolerating [place] NGT, flushed per MD orders, minimal brown drainage. Reports no pain.
Vázquez draining clear yellow urine. IVF infusing via RFA without complication. Bed alarm remains active for safety, pt with one attempt to get OOB this shift, forgetful to place; reoriented quickly. Call gutierrez within reach. Will continue closely
monitor.
[2023-10-21 06:19] LABS: % Basophils 0.1 % (0-2); % Immature Granulocytes 0.4 % (0-0.5); % Lymphocytes 8.8 % (20.5-51.1); % Monocytes 4.9 % (1.7-9.3); % Neutrophils 85.8 % (42.2-75.2); Absolute Lymphocytes 0.6 10^3/uL (1.2-3.4); Absolute Monocytes 0.3 10^3/uL (0.1-0.6); Absolute Neutrophils 5.8 10^3/uL (1.4-6.5); Hematocrit 28.9 % (37.0-47.0); Hemoglobin 9.1 g/dL (12.0-16.0); Mean Corp Hgb Conc. 31.5 g/dL (33.0-37.0); Mean Corpuscular Hgb 23.3 pg (27.0-31.0); Mean Corpuscular Volume 74.1 fL (81.0-99.0); Mean Platelet Volume 9.6 fL (7.4-10.4); Nucleated Red Blood Cells % 0 %; Platelet Count 211 10^3/uL (130-400); Red Cell Dist. Width 16.9 % (11.5-14.5); White Blood Cell Count 6.8 10^3/uL (4.8-10.8)
[2023-10-21 06:26] LABS: INR 2.23; PT 24.6 Sec (11.4-14.6)
[2023-10-21 06:46] LABS: Blood Urea Nitrogen 9 mg/dl (7-17); Calcium 7.4 mg/dl (8.4-10.2); Carbon Dioxide 18 mmol/L (22-30); Chloride 107 mmol/L (98-107); Estimated Creatinine Clearance 47 ml/min; Glucose 125 mg/dl (70-99); Magnesium 2.4 mg/dl (1.6-2.3); Sodium 132 mmol/L (135-145); eGFR > 60.00
[2023-10-21 06:51] LABS: Potassium 4.3 mmol/L (3.5-5.1)
[2023-10-21] MEDS: PROTONIX IV 40 MG IV (08:13)
[2023-10-21] MEDS: NSS (PRESERVATIVE FREE) 10 ML IV (08:13)
--- NOTE | 2023-10-21 09:26 | W.PN.CARDCBS ---
Today's Communication / Plan
-
Continue postop care. Continue telemetry
Hopefully resume Coumadin and Multaq over next 24 hours when NG tube is out
Hemoglobin stable at 9
Impression / Plan
-
PCP: In [place]
Cardiology: Dr. Hernandez at [facility]
Impression:
Admitted with newly diagnosed proximal ascending colon and cecal mass 10/18/23 s/p R colectomy 10/20
Paroxysmal Afib
Chronic warfarin OAC
Chronic Multaq therapy
Hypokalemia
Hyponatremia
Echo: 10/20/23: EF 70%, Mild MR, aortic sclerosis
Plan:
Overall doing well postoperatively. Still has NG tube in.
Had 1 brief episode of atrial fibrillation overnight for less than 1 minute.
Hopefully resume Multaq over next 24 hours. Blood pressure is overall stable.
Would resume Coumadin when okay with surgery. Hemoglobin at 9.1.
Progress Note - Sap Data Architect
Subjective
Date of Service: October 21, 2023
Overall did well with her colon surgery. Denies chest pains. Had 1 brief episode of A-fib for several seconds last night.
Objective
Labs:
10/21/23 04:56
10/21/23 04:56
Labs
Hgb 9.1 g/dL (12.0-16.0) L 10/21/23 04:56
Hct 28.9 % (37.0-47.0) L 10/21/23 04:56
Plt Count 211 10^3/uL (130-400) 10/21/23 04:56
PT 24.6 Sec (11.4-14.6) H 10/21/23 04:56
INR 2.23 10/21/23 04:56
APTT 44.7 Sec (23.4-35.0) H 10/20/23 04:09
Sodium 132 mmol/L (135-145) L 10/21/23 04:56
Potassium 4.3 mmol/L (3.5-5.1) 10/21/23 04:56
BUN 9 mg/dl (7-17) 10/21/23 04:56
Creatinine 0.7 mg/dL (0.6-1.0) 10/21/23 04:56
Glucose 125 mg/dl (70-99) H 10/21/23 04:56
Vital Signs and I&O:
Vital Signs
Temp Pulse Resp BP Pulse Ox
97.7 F 65 16 119/57 95
10/21/23 07:05 10/21/23 07:05 10/21/23 07:05 10/21/23 07:05 10/21/23 08:00
Vital Signs
Temp Pulse Resp BP Pulse Ox
97.7 F 65 16 119/57 95
10/21/23 07:05 10/21/23 07:05 10/21/23 07:05 10/21/23 07:05 10/21/23 08:00
Intake & Output
10/19/23 10/20/23 10/21/23 10/22/23
06:59 06:59 06:59 06:59
Intake Total 480 / 480 1121 / 1121 1890 / 1890
Output Total 675 / 675
Balance 480 / 480 1121 / 1121 1215 / 1215
Physical Exam
Physical Exam
GEN: No distress, awake, Ox3
HEENT: supple, anicteric, mmm
LUNGS: CTA, no wheezes/rales
CV: Reg, S1/S2, 1/6 syst LSB, no gallop
ABD: soft, BS+, NT/ND
EXT: No edema
NEURO: Gross non-focal
SKIN: No rash
--- NOTE | 2023-10-21 10:00 | W.PN.CRS1 ---
Today's Communication / Plan
-
OOB
continue NGT
Assessment/Plan
-
POD#1 robotic right colectomy
1. Vitals normal. Hgb 9.1.
2. Continue NPO status and NGT until bowel function returns.
3. OOB today with PT.
4. Continue acosta until tomorrow morning.
5. Given INR 2.25, will hold on Lovenox. TEDS/SCDS in place for DVT prophylaxis.
6. OR pathology pending.
7. Hold Coumadin/heparin gtt for now.
8. I updated her daughter Alejandra Gerber via phone.
Subjective Data
Subjective Data
Date of Service: October 21, 2023
Patient states she feels well. She parson no pain. She slept well. She has no flatus or bowel movements yet.
Objective Data
-
Vital Signs
Temp Pulse Resp BP Pulse Ox
97.7 F 65 16 119/57 95
10/21/23 07:05 10/21/23 07:05 10/21/23 07:05 10/21/23 07:05 10/21/23 08:00
Intake & Output
10/20/23 10/21/23 10/22/23
06:59 06:59 06:59
Intake Total 1121 / 1121 1890 / 1890
Output Total 675 / 675
Balance 1121 / 1121 1215 / 1215
Intake:
Oral fluids 0 / 0
IV fluids (Total) 420 / 420 1330 / 1330
normosol 150 / 150
IV piggybacks 470 / 470
Amount instilled into GI Tube ( 90 / 90
Total)
[place] Sump 90 / 90
Blood Product Amount Infused ( 701 / 701
mL)
Ffp24 Divided Unit Part 2 Unit 224 / 224
[id number]
Ffp24 Divided Unit Part 2 Unit 227 / 227
[id number]
Fresh Frozen Plasma 24 Hours 250 / 250
Unit [id number]
Output:
Gastrointestinal tube output ( 50 / 50
Total)
[place] Sump 50 / 50
Urine, [place] 625 / 625
Other:
Number of approximated MODERATE 1 2
amounts of urine
Lab Results
10/21/23 04:56
10/21/23 04:56
Physical Exam
-
General: No Acute Distress and AOx3
Abdomen: Soft, Non Distended and Non Tender
Skin: Warm and Dry
Incision: Clear, Dry, Intact
--- NOTE | 2023-10-21 11:33 | W.PN.HOSP.TC ---
Today's Communication/Plan
-
Await return of bowel function
Assessment / Plan
Assessment / Plan
Gen-AAOx3, NAD
HEENT-NC, AT, anicteric, clear oral mm
Neck-supple
CV-reg, no M, +S1/S2
Lungs-clear B/L
Abd-soft, NT, ND
Ext-no edema
Musculoskeletal-no cyanosis, clubbing
Skin-warm and dry
Neuro-grossly non-focal
Psych-calm, cooperative
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 Underwent successful right colectomy October 20. NG tube remains in place, colorectal surgery managing. Currently NPO. Awaiting return of bowel
function.
Paroxysmal A-fib--> currently in sinus rhythm. Received 3 units of FFP preop. INR corrected to 1.5-day of surgery, 2.2 today. Warfarin on hold, resume when okay with surgery.
Hypokalemia -resolved.
Asymptomatic E. coli bacteriuria--> no need for antibiotic
Moderate protein calorie malnutrition/underweight--> monitor nutrition
Acute anemia -microcytic. Hemoglobin 9.1 today. Low iron saturation noted, ferritin 22. At least a component of iron deficiency anemia noted, likely due to colon mass related blood loss. B12 folic acid normal.
Hyponatremia-->sodium 132 today, continue to monitor
Hyperlipidemia -on Crestor.
DVT ppx-->SCDs for now
CODE STATUS-->Full code
PT consult
Anticipated Discharge: > 48 hours
Subjective/Interval History
-
Date of Service: October 21, 2023
Patient seen and examined. Daughter at the bedside. She has no major complaints. Feeling tired.
Objective Data
-
Labs:
Laboratory Results
10/21/23
04:56
WBC 6.8
Hgb 9.1 L
Hct 28.9 L
Plt Count 211
PT 24.6 H
INR 2.23
Sodium 132 L
Potassium 4.3
Chloride 107
Carbon Dioxide 18 L
BUN 9
Creatinine 0.7
Glucose 125 H
Calcium 7.4 L
Vital Signs:
Vital Signs
Temp Pulse Resp BP Pulse Ox
97.7 F 65 16 119/57 95
10/21/23 07:05 10/21/23 07:05 10/21/23 07:05 10/21/23 07:05 10/21/23 08:00
I&O
10/20/23 10/21/23 10/22/23
06:59 06:59 06:59
Intake Total 1121 / 1121 1890 / 1890
Output Total 675 / 675
Balance 1121 / 1121 1215 / 1215
Review of Systems
-
History Source: Patient
All other systems: Reviewed and negative
--- NOTE | 2023-10-21 15:02 | CM ---
Chart reviewed. Spoke with pt and her daughter at bedside
POD 1 - s/p Right colectomy
Currently NPO, has NGT
Waiting on PT recs
Discharge needs tbd
Pt from out of area, plans to stay with daughter after d/c for undetermined time
Plan - tbd - pend PT recs, medical needs
--- NOTE | 2023-10-21 15:13 | PTOTSP ---
Recommend OT eval and treat to assist with dc planning. Thanks
[2023-10-21] MEDS: SODIUM BICARBONATE 1150 MEQ IV (16:34)
[2023-10-22] VITALS (7 sets, daily range): BP systolic 92–118; BP diastolic 47–70; PULSE 68; O2SAT 99; BMI 20.9
--- NOTE | 2023-10-22 04:02 | PTCARENOTE ---
Addendum entered by Sofiya Romero RN 10/22/23 04:41:
Electronic orders received for IV lopressor (refer to NOV). Pt remains asymptomatic at this time.
Original Note:
Pt w/increased heart rate via tele, 120s-140s, appears to be afib. EKG obtained, confirmed rhythm afib w/RVR. SWEET POTATO DISINTEGRATOR covering house contacted, awaiting orders. Pt asymptomatic.
[2023-10-22] MEDS: TORADOL 10 MG IV ×4 (04:29→21:22)
[2023-10-22] MEDS: LOPRESSOR 2.5 MG IV ×3 (04:29→08:29)
--- NOTE | 2023-10-22 06:23 | PTCARENOTE ---
Pt's HR sustained 120s-140s. BP 99/69, remains in afib. Asymptomatic. SHOP DIRECTOR covering house notified, electronic orders received for additonal dose if IV lopressor. Will continue to closely monitor.
[2023-10-22 06:25] LABS: % Basophils 0.1 % (0-2); % Eosinophils 0.3 % (0-6); % Immature Granulocytes 0.7 % (0-0.5); % Lymphocytes 13.6 % (20.5-51.1); % Monocytes 2.8 % (1.7-9.3); % Neutrophils 82.5 % (42.2-75.2); Absolute Immature Granulocytes 0.1 10^3/uL (0-0.05); Absolute Lymphocytes 0.9 10^3/uL (1.2-3.4); Absolute Monocytes 0.2 10^3/uL (0.1-0.6); Absolute Neutrophils 5.5 10^3/uL (1.4-6.5); Hematocrit 28.5 % (37.0-47.0); Hemoglobin 9.1 g/dL (12.0-16.0); Mean Corp Hgb Conc. 31.9 g/dL (33.0-37.0); Mean Corpuscular Volume 75.2 fL (81.0-99.0); Mean Platelet Volume 9.6 fL (7.4-10.4); Nucleated Red Blood Cells % 0 %; Platelet Count 213 10^3/uL (130-400); Red Blood Cell Count 3.79 10^6/uL (4.20-5.40); Red Cell Dist. Width 16.9 % (11.5-14.5); White Blood Cell Count 6.7 10^3/uL (4.8-10.8)
[2023-10-22] MEDS: SODIUM BICARBONATE 1150 MEQ IV (06:33)
[2023-10-22 07:09] LABS: Blood Urea Nitrogen 10 mg/dl (7-17); Calcium 7.9 mg/dl (8.4-10.2); Carbon Dioxide 30 mmol/L (22-30); Chloride 102 mmol/L (98-107); Estimated Creatinine Clearance 57 ml/min; Glucose 92 mg/dl (70-99); Potassium 3.2 mmol/L (3.5-5.1); Sodium 132 mmol/L (135-145); eGFR > 60.00
[2023-10-22] MEDS: NSS (PRESERVATIVE FREE) 10 ML IV (08:20)
[2023-10-22] MEDS: PROTONIX IV 40 MG IV (08:20)
--- NOTE | 2023-10-22 09:15 | PN.CDI ---
CDI
- -
CDI:
Physician Documentation Request
Admit Date: 10/18/23 19:25
Dear Doctor Rhonda ,
Please review the following and provide your response in the progress notes.
Clinical Indicators:
Pt admitted with obstructing cecal mass s/p resection on 10/20
Documented per H&P, ' ...p/w mild abdominal pain, decreased appetite, intermittent vomiting, and generalized weakness. She has also noted significant unintentional weight loss (from baseline 130 pound to 111 pounds)...'
Progress note 10/21, ' Moderate protein calorie malnutrition/underweight--> monitor nutrition...'
Nutrition notes 10/19 &10/21, ' Consulted for weight loss > 25 pounds. ...CBW: 105 lb 6 oz BMI 19.3 normal range (underweight for adults >65) 10/19. Per daughter pt's UBW is 130 lbs which she weighed ~6 months ago. Pt was 120 lbs right around the
holidays. Significant weight loss of 12.5% x < 3 months, 19.2% x 6 months.....Per ASPEN/AND guidelines, pt meets for severe malnutrition in the context of chronic illness as evidenced by <50% intake est needs x 1 month, 12.5% weight loss x ~3
months, 19.2% weight loss x ~6 months, muscle and fat loss....'
Based on the information, which of the following most accurately represents the patient's nutritional status?
Severe Protein Calorie Malnutrition
Moderate Protein calorie Malnutrition only
Other (please specify)
[place] Criteria (ACP Hospitalist 2017)
2 or more criteria must be present for either
non severe or severe malnutrition
Note that the criteria differs related to the
presence of an acute or chronic illness
Acute Illness Chronic Illness
Energy Intake Non Severe: <75% for >7 days Non Severe: <75% for >1 month
Severe: <50% for >5 days Severe: <75% for >1 month
Weight Loss Non Severe: 1-2% over 1 week Non Severe: 5% over 1 month
5% over 1 month 7.5% over 3 months
7.5% over 3 months 10% over 6 months
1 year N/A 20% over 1 year
Severe: >2% over 1 week Severe: >5% over 1 month
>5% over 1 month >7.5% over 3 months
>7.5% over 3 months >10% over 6 months
1 year N/A >20% over 1 year
Body Fat Non Severe: Mild Decrease Non Severe: Mild Loss
Severe: Moderate Decrease Severe: Severe Loss
Muscle Mass Non Severe: Mild Decrease Non Severe: Mild Loss
Severe: Moderate Decrease Severe: Severe Loss
Fluid Accumulation Non Severe: Mild Accumulation Non Severe: Mild Accumulation
Severe: Moderate to severe Severe: Moderate to severe
accumulation accumulation
Reduced Central Office Mechanic Strength Non Severe: N/A Non Severe: N/A
Severe: Measurably reduced Severe: Measurably reduced
Additional criteria that can be used to Determine if Mild or Moderate Malnutrition (Merck Manual 2018)
Use of terms such as suspected, likely, concern for, or probable (associated with a specific diagnosis that is being evaluated, monitored, or treated as if it exists) are acceptable and can be coded in the inpatient setting, when documented at the
time of discharge.
Thank you,
Veronika Reyez RN
CDI Specialist
[place] Text
Please use your independent medical judgment in providing your response.
--- NOTE | 2023-10-22 09:31 | PN.CDI ---
CDI
- -
CDI:
Physician Documentation Request
Admit Date: 10/18/23 19:25
Dear Doctor Rhonda,
Please review the following and provide your response in the progress notes.
Clinical Indicators:
Pt admitted with obstructing cecal mass s/p resection on 10/20
Documented per wound care panel 10/18 admission assessment , Pressure injury stage 2 sacral/buttock right ...'
Nutrition notes 10/19 & 10/21, ' stage 2 R buttock...'
Physician documentation of the type and location of wounds is required for compliant documentation. Based on the above clinical findings and your assessment, please provide the following in your progress note:
1. Location of the ulcer/wound, including laterality.
2. Type (etiology) of ulcer/wound:
- Pressure (decubitus) ulcer
- Non-Pressure ulcer
- Other
Use of terms such as suspected, likely, concern for, or probable (associated with a specific diagnosis that is being evaluated, monitored, or treated as if it exists) are acceptable and can be coded in the inpatient setting, when documented at the
time of discharge.
Thank you,
Veronika Reyez RN
CDI Specialist
[place] Text
Please use your independent medical judgment in providing your response.
*Source: National Pressure Ulcer Advisory Panel (NPUAP)
--- NOTE | 2023-10-22 09:52 | W.PN.HOSP.TC ---
Addendum entered and electronically signed by José Miguel Ellis DO 10/22/23 10:34:
Pressure injury stage 2 sacral/buttock right -wound care consulted.
Severe protein/calorie malnutrition -nutrition consulted.
Original Note:
Today's Communication/Plan
-
Stop bicarb drip
IV KCl
Continue PT
Assessment / Plan
Assessment / Plan
Gen-AAOx3, NAD
HEENT-NC, AT, anicteric, clear oral mm
Neck-supple
CV-reg, no M, +S1/S2
Lungs-clear B/L
Abd-soft, NT, ND
Ext-no edema
Musculoskeletal-no cyanosis, clubbing
Skin-warm and dry
Neuro-grossly non-focal
Psych-calm, cooperative
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 Underwent successful right colectomy October 20. NG tube remains in place, colorectal surgery managing. Currently NPO. Now passing gas. NG tube to
come out if okay with surgery.
Paroxysmal A-fib--> currently in sinus rhythm. Received 3 units of FFP preop. INR corrected to 1.5-day of surgery, 2.2 today. Can use IV heparin as per colorectal surgery. Rapid atrial fibrillation noted this morning, will defer to cardiology.
Hypokalemia -3.2 today. Will replete intravenously.
Metabolic acidosis resolved on bicarb drip. Will change back to normal saline.
Asymptomatic E. coli bacteriuria--> no need for antibiotic
Moderate protein calorie malnutrition/underweight--> monitor nutrition
Acute anemia -microcytic. Hemoglobin stable at 9.1 today. Low iron saturation noted, ferritin 22. At least a component of iron deficiency anemia noted, likely due to colon mass related blood loss. B12 folic acid normal.
Hyponatremia-->sodium stable at 132 today, continue to monitor
Hyperlipidemia -on Crestor.
DVT ppx-->SCDs for now
Full code
PT consult
Anticipated Discharge: > 48 hours
Subjective/Interval History
-
Date of Service: October 22, 2023
Patient seen and examined. Feels fine. Passing gas. Denies abdominal pain. No complaints.
Objective Data
-
Labs:
Laboratory Results
10/22/23
05:46
WBC 6.7
Hgb 9.1 L
Hct 28.5 L
Plt Count 213
Sodium 132 L
Potassium 3.2 L D
Chloride 102
Carbon Dioxide 30
BUN 10
Creatinine 0.5 L
Glucose 92
Calcium 7.9 L
Vital Signs:
Vital Signs
Temp Pulse Resp BP Pulse Ox
97.5 F 145 18 92/63 96
10/22/23 08:20 10/22/23 08:29 10/22/23 08:20 10/22/23 08:29 10/22/23 08:20
I&O
10/21/23 10/22/23 10/23/23
06:59 06:59 06:59
Intake Total 1890 / 1890 1380 / 1380
Output Total 675 / 675 900 / 900
Balance 1215 / 1215 480 / 480
Review of Systems
-
History Source: Patient
All other systems: Reviewed and negative
[2023-10-22] MEDS: NSS 1000 IV ×2 (09:59→23:03)
[2023-10-22] MEDS: KCL 270 MEQ IV (09:59)
--- NOTE | 2023-10-22 10:23 | W.PN.CRS1 ---
Today's Communication / Plan
-
NG tube clamping trial
Assessment/Plan
-
POD#2 robotic right colectomy
1. Afebrile. Went into afib earlier this morning and her heart rate is 130s to 140s.
2. Given return of flatus, NG tube clamping trial today. Remain NPO if discontinued.
3. OOB today with PT.
4. Voiding post acosta removal.
5. Given INR 2.25 yesterday, will hold on Lovenox. TEDS/SCDS in place for DVT prophylaxis.
6. OR pathology pending.
7. Okay to start a heparin drip from our perspective if needed. Hold on Coumadin for now.
Subjective Data
Subjective Data
Date of Service: October 22, 2023
The patient states she has no pain. She has flatus. She has not had any bowel movements yet. She denies nausea or vomiting. She is 'sore'. In her abdomen. She has been out of bed with physical therapy.
Objective Data
-
Vital Signs
Temp Pulse Resp BP Pulse Ox
97.5 F 145 18 92/63 96
10/22/23 08:20 10/22/23 08:29 10/22/23 08:20 10/22/23 08:29 10/22/23 08:20
Intake & Output
10/21/23 10/22/23 10/23/23
06:59 06:59 06:59
Intake Total 1890 / 1890 1380 / 1380
Output Total 675 / 675 900 / 900
Balance 1215 / 1215 480 / 480
Intake:
Oral fluids 0 / 0 100 / 100
IV fluids (Total) 1330 / 1330 900 / 900
normosol 150 / 150
IV piggybacks 470 / 470 200 / 200
Amount instilled into GI Tube ( 90 / 90 180 / 180
Total)
[place] Sump 90 / 90 180 / 180
Output:
Gastrointestinal tube output ( 50 / 50 300 / 300
Total)
[place] Sump 50 / 50 300 / 300
Urine, [place] 625 / 625 600 / 600
Other:
Number of approximated MODERATE 2
amounts of urine
Lab Results
10/22/23 05:46
10/22/23 05:46
Physical Exam
-
General: No Acute Distress and AOx3
Abdomen: Soft, Non Distended and Tender (RLQ - mild)
Skin: Warm and Dry
Incision: Clear, Dry, Intact
--- NOTE | 2023-10-22 10:51 | CM ---
Addendum entered by Kandi Valdes 10/22/23 13:05:
Spoke with Maribeth at [facility]. Reporting not in [employer]
Faxed clinicals to [phone]
Addendum entered by Kandi Valdes 10/22/23 11:45:
Updated pt and daughter, Je at bedside
Given list of local SNF's to review
Original Note:
Chart reviewed. Spoke with pts daughter Je [phone]
PT recommending SNF - discussed with Je
Family reporting pt is from a group home community that does provide SNF and that their mother would most likely do better there
Daughter reports she called community today - was given name of Liaison and phone #
Called Maribeth Noss [phone] at [facility]
LM with call back # to return call
Sent referral in [facility]
Also spoke with daughter about transport to facility - re: poss increased co-pay for ambulance
Family plans to discuss with mother. Will wait to see if pt accepted at [facility] and discuss options
CM will continue to follow
--- NOTE | 2023-10-22 15:02 | W.PN.CARDCBS ---
Addendum entered and electronically signed by Marko Vogel MD 10/22/23 17:52:
Patient seen, interviewed and examined by me.
Fatigued-appearing, no acute distress
NG tube in place
Regular rate and rhythm with normal S1 and S2, no S3 no S4. There is a grade 1/6 apical holosystolic murmur and no rubs. PMI is normally placed.
Lungs are clear to auscultation bilaterally without wheezes rales or rhonchi.
Abdomen soft, nondistended
Extremities show trace pretibial edema bilaterally no clubbing or cyanosis.
Agree with advanced practice professionals assessment and plan as noted below.
We can use IV beta-ar for rate control given that she is still n.p.o. I did increase frequency of Lopressor 2.5 mg IV to every 4 hours as needed.
Once she is taking orals, resume her outpatient medical regimen which includes dronedarone.
Eventually resume oral anticoagulation if there is no surgical or medical contraindication.
Original Note:
Today's Communication / Plan
-
Lopressor 2.5 mg IV x1 given at time of exam 10/22/23 approx 0815
Restart PO meds is NGT gets pulled and her diet is advanced
Impression / Plan
-
PCP: In [place], [place]
Cardiology: Dr. Hernandez at [facility]
Impression:
Admitted with newly diagnosed proximal ascending colon and cecal mass 10/18/23 s/p R colectomy 10/20/23
Paroxysmal Afib
Chronic warfarin OAC
Chronic Multaq therapy, stopped approx 08/2023
Hypokalemia
Hyponatremia
Echo: 10/20/23: EF 70%, Mild MR, aortic sclerosis
Plan:
-Patient with Afib in RVR starting 10/22/23 early AM. HRs in the 130s to 140s, but no chest pain, palpitations or SOB. BP 92/63. Patient given Lopressor 2.5 mg IV at 0429, 0615 and 0815.
-Increase PRN dose of Lopressor to 2.5 mg IV q 4 hours.
-Patient has a h/o Afib and was previously on Multaq 400 mg BID, but this was stopped about 2 months prior to admission due to ineffectiveness per patient.
-Warfarin was reversed with 3 units of FFP on 10/19/23. INR was 1.58 on 10/20/23. Warfarin has not yet been restarted.
-NGT being clamped 10/22/23 AM and pending response might be pulled later in the day. She is passing gas. When she can restart PO meds would start Lopressor 12.5 mg q 6 hours.
HPI: Patient came to [facility] yesterday with weight loss and is now admitted for colon surgery due to malignancy and cardiology has been consulted for preoperative evaluation. Patient lives in [place], [place] which is about 2 hours away from , but
her daughter lives locally in [place], [place] and brought patient to [facility] yesterday after never being previously evaluated in the system. Patient has been treated in the [facility] system and followed by cardiology there for a h/o paroxysmal Afib.
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 Records are being
faxed now.
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
Subjective
Date of Service: October 22, 2023
Denies palpitations
Objective
Labs:
10/22/23 05:46
10/22/23 05:46
Labs
Hgb 9.1 g/dL (12.0-16.0) L 10/22/23 05:46
Hct 28.5 % (37.0-47.0) L 10/22/23 05:46
Plt Count 213 10^3/uL (130-400) 10/22/23 05:46
PT 24.6 Sec (11.4-14.6) H 10/21/23 04:56
INR 2.23 10/21/23 04:56
APTT 44.7 Sec (23.4-35.0) H 10/20/23 04:09
Sodium 132 mmol/L (135-145) L 10/22/23 05:46
Potassium 3.2 mmol/L (3.5-5.1) L D 10/22/23 05:46
BUN 10 mg/dl (7-17) 10/22/23 05:46
Creatinine 0.5 mg/dL (0.6-1.0) L 10/22/23 05:46
Glucose 92 mg/dl (70-99) 10/22/23 05:46
Vital Signs and I&O:
Vital Signs
Temp Pulse Resp BP Pulse Ox
97.5 F 145 18 92/63 96
10/22/23 08:20 10/22/23 08:29 10/22/23 08:20 10/22/23 08:29 10/22/23 08:20
Vital Signs
Temp Pulse Resp BP Pulse Ox
97.5 F 145 18 92/63 96
10/22/23 08:20 10/22/23 08:29 10/22/23 08:20 10/22/23 08:29 10/22/23 08:20
Intake & Output
10/20/23 10/21/23 10/22/23 10/23/23
06:59 06:59 06:59 06:59
Intake Total 1121 / 1121 1890 / 1890 1380 / 1380
Output Total 675 / 675 900 / 900
Balance 1121 / 1121 1215 / 1215 480 / 480
Physical Exam
Physical Exam
GEN: NAD. AAO to person, place and situation
HEENT: EOMI
LUNGS: Clear anterolaterally
CV: Irreg irreg and fast
ABD: +NGT in place
EXT: No edema B/L
NEURO: Gross non-focal
SKIN: No rash
--- NOTE | 2023-10-22 19:05 | FALL ---
Description of Fall: Patient found on her butt on the floor of the bathroom. The PCT put her in the bathroom and left so the patient got up on her own and fell after washing her hands per family. Fall was unwitnessed, pt states she did not hit her
head but family states she was on her butt leaning back against the wall when they heard a noise and went in. Pt oriented but is being worked up for dementia. Pt has been on bed alarm since post surgery due to anesthesia immediately after (Pt
impulsive and confused immediately post op). Will continue to monitor. [facility] nurse and myself immediately went in to assess her. Vital signs obtained. Pt oriented, vital signs stable, assisted patient up and back to bed. When questioned, patient
did admit to being dizzy.
Injuries Noted: No obvious signs of injury and patient states no pain.
Action Taken:
Pt remains on bed alarm. Call gutierrez within reach. Coaching to patient and family (2 daughters who were bedside). Moving forward, patient will not be left alone in bathroom or on commode if needed.
Name of Provider Notified: Liliane Cedillo (JOSE). Also, Dr Cui because family was concerned about possible 'Tears'/complications from being post op day 2 from right colectomy. HEAD RESIDENT had me reach out to See for clarification on if he would like
imaging.
--- NOTE | 2023-10-22 19:51 | W.PN.UPDATE ---
Update Note
Progress Note Update
Nurse reported patient had unwitnessed fall in bathroom.
Patient AAOx3, offers no complaints, denies any pain or discomfort. Is able to follow commands and has positive ROM in all extremities. Denies hitting her head. Describes herself falling backward and landing on her backside after washing her hands.
Patient daughters at bedside, expressing concerns for internal damage to recent surgical intervention. Requested surgeon input on need for any scans s/p fall.
At bedside for assessment:
General - AAOx3, NAD
Head/Neck - no injuries, PERRLA, pink/moist mucus membranes
CV - regular, +S1/S2, - murmur
Lungs - clear throughout all theodore
Abdomen - soft, NT, ND, dressing clean dry and intact
Musculoskeletal - + ROM in all extremities, no noted injuries
Skin - warm and dry
Neuro - grossly non-focal
Psych - calm, cooperative
Plan:
- Nursing to monitor for any change in mental status or new complaints s/p fall and report and changes immediately to provider
- Reviewed fall, physical assessment and families concerns with on-call See Vazquez from the Colorectal team - Dr. Cui in agreement that patient does not warrant current workup at this time, and monitor/report any changes
- Update given to nursing and family
[2023-10-23] VITALS (7 sets, daily range): BP systolic 90–121; BP diastolic 43–71; BMI 20.4
[2023-10-23] MEDS: TORADOL 10 MG IV ×4 (03:24→21:40)
[2023-10-23 06:28] LABS: % Basophils 0.3 % (0-2); % Eosinophils 1.4 % (0-6); % Immature Granulocytes 0.6 % (0-0.5); % Lymphocytes 23.2 % (20.5-51.1); % Monocytes 4.5 % (1.7-9.3); Absolute Eosinophils 0.1 10^3/uL (0-0.7); Absolute Lymphocytes 1.5 10^3/uL (1.2-3.4); Absolute Monocytes 0.3 10^3/uL (0.1-0.6); Absolute Neutrophils 4.5 10^3/uL (1.4-6.5); Hemoglobin 8.5 g/dL (12.0-16.0); Mean Corp Hgb Conc. 31.5 g/dL (33.0-37.0); Mean Corpuscular Hgb 24.1 pg (27.0-31.0); Mean Corpuscular Volume 76.5 fL (81.0-99.0); Mean Platelet Volume 9.9 fL (7.4-10.4); Nucleated Red Blood Cells % 0 %; Platelet Count 238 10^3/uL (130-400); Red Blood Cell Count 3.53 10^6/uL (4.20-5.40); White Blood Cell Count 6.5 10^3/uL (4.8-10.8)
[2023-10-23 06:37] LABS: INR 2.03; PT 23.1 Sec (11.4-14.6)
[2023-10-23 07:15] LABS: Blood Urea Nitrogen 9 mg/dl (7-17); Calcium 7.8 mg/dl (8.4-10.2); Carbon Dioxide 26 mmol/L (22-30); Chloride 101 mmol/L (98-107); Estimated Creatinine Clearance 57 ml/min; Glucose 51 mg/dl (70-99); Potassium 3.6 mmol/L (3.5-5.1); Sodium 132 mmol/L (135-145); eGFR > 60.00
[2023-10-23 07:20] LABS: Glucose - Point of Care 70 mg/dl (70-99)
[2023-10-23 07:42] LABS: Glucose - Point of Care 68 mg/dl (70-99)
[2023-10-23 08:04] LABS: Glucose - Point of Care 69 mg/dl (70-99)
--- NOTE | 2023-10-23 08:31 | W.PN.CRS1 ---
Today's Communication / Plan
-
Clear liquids
Assessment/Plan
-
POD#3 robotic right colectomy
1. Afebrile. Patient is back into normal sinus rhythm after undergoing rapid A-fib yesterday morning.
2. Nasogastric tube removed yesterday. Start on clear liquid diet.
3. OOB today with PT.
4. Voiding post acosta removal.
5. TEDS/SCDS in place for DVT prophylaxis.
6. OR pathology pending.
7.� Okay to start a heparin drip from our perspective if needed.� Hold on Coumadin for now.
Subjective Data
Subjective Data
Date of Service: October 23, 2023
She did have a fall last night
Patient states she is urinating. She has no pain. She has no nausea or vomiting. She is having bowel movements and flatus. She did have a fall last night and complains of some soreness in her buttocks area.
Objective Data
-
Vital Signs
Temp Pulse Resp BP Pulse Ox
97.8 F 61 18 116/58 96
10/23/23 07:05 10/23/23 07:05 10/23/23 07:05 10/23/23 07:05 10/23/23 07:05
Intake & Output
10/22/23 10/23/23 10/24/23
06:59 06:59 06:59
Intake Total 1380 / 1380 1210 / 1210
Output Total 900 / 900
Balance 480 / 480 1210 / 1210
Intake:
Oral fluids 100 / 100 100 / 100
IV fluids (Total) 900 / 900 840 / 840
IV piggybacks 200 / 200 270 / 270
Amount instilled into GI Tube ( 180 / 180
Total)
[place] Sump 180 / 180
Output:
Gastrointestinal tube output ( 300 / 300
Total)
[place] Sump 300 / 300
Urine, [place] 600 / 600
Other:
Number of approximated MODERATE 2
amounts of urine
Number of approximated LARGE 1
amounts of urine
Lab Results
10/23/23 04:04
10/23/23 04:04
Physical Exam
-
General: No Acute Distress and AOx3
Abdomen: Soft, Non Distended and Non Tender
Skin: Warm and Dry
Incision: Clear, Dry, Intact
[2023-10-23] MEDS: D5/0.45%NACL 1000 IV (08:41)
[2023-10-23] MEDS: PROTONIX IV 40 MG IV (08:43)
[2023-10-23] MEDS: NSS (PRESERVATIVE FREE) 10 ML IV (08:43)
--- NOTE | 2023-10-23 10:21 | W.PN.HOSP.TC ---
Today's Communication/Plan
-
Patient initiated on clear liquids. Resume oral home medication.
Follow INR and start on IV heparin once less than 2.
Assessment / Plan
Assessment / Plan
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 Underwent successful right colectomy October 20. NG tube is out, started on clear liquid diet, colorectal surgery managing.
Paroxysmal A-fib--> Received 3 units of FFP preop. INR corrected to 1.5-day of surgery, 2.03 today. Okay from anticoagulation from surgery standpoint but with INR of 2.03 I will hold IV heparin and Coumadin today and follow INR tomorrow. Resume
her Multaq. Continue with beta-ar.
Hyponatremia-mild. Check urine lites. Continue to follow for now.
Hypoglycemia-asymptomatic. Not known to have diabetes mellitus. Switch fluid to D5/12 and follow. Probably doesnt have much of glycogen stores.No known liver dz.
Moderate protein calorie malnutrition/underweight--> monitor nutrition
Acute anemia -microcytic. Hemoglobin stable at 8.5 today. Low iron saturation noted, ferritin 22. At least a component of iron deficiency anemia noted, likely due to colon mass related blood loss. B12 folic acid normal.
Hyperlipidemia -on Crestor.
DVT ppx-->SCDs for now
Full code
Anticipated Discharge: > 48 hours
Subjective/Interval History
-
Date of Service: October 23, 2023
Patient cleared for clear liquid diet. She is currently having bowel without any nausea or abdominal pain.
Denies shortness of breath or chest pain.
No fevers.
Objective Data
-
Labs:
Laboratory Results
10/23/23
04:04
WBC 6.5
Hgb 8.5 L
Hct 27.0 L
Plt Count 238
PT 23.1 H
INR 2.03
Sodium 132 L
Potassium 3.6
Chloride 101
Carbon Dioxide 26
BUN 9
Creatinine 0.6
Glucose 51 L*
Calcium 7.8 L
Vital Signs:
Vital Signs
Temp Pulse Resp BP Pulse Ox
97.8 F 61 18 116/58 96
10/23/23 07:05 10/23/23 07:05 10/23/23 07:05 10/23/23 07:05 10/23/23 07:05
I&O
10/22/23 10/23/23 10/24/23
06:59 06:59 06:59
Intake Total 1380 / 1380 1210 / 1210
Output Total 900 / 900
Balance 480 / 480 1210 / 1210
Review of Systems
-
EENT: Denies Sore Throat
Respiratory: Denies Cough
Neuro: Denies Dizzy
Physical Exam
-
General: No Apparent Distress
HEENT: Moist Mucous Membranes
Respiratory: Clear to Auscultation
Cardiac: S1/S2 and Irregular Rhythm; Negative Tachycardic
GI: Soft and Normal Bowel Sounds
Neuro: AO x 3
Psych: Calm; Negative Confused
Data Reviewed
-
Labs: Labs Reviewed by me
[2023-10-23] MEDS: MULTAQ 400 MG PO ×2 (11:25→20:00)
--- NOTE | 2023-10-23 12:39 | W.PN.CARDCBS ---
Today's Communication / Plan
-
Continue dronedarone
Resume warfarin when okay with surgery
Impression / Plan
-
PCP: In [place], [place]
Cardiology: Dr. Hernandez at [facility]
Impression:
Admitted with newly diagnosed proximal ascending colon and cecal mass 10/18/23 s/p R colectomy 10/20/23
Paroxysmal Afib
Chronic warfarin OAC
Chronic Multaq therapy, stopped approx 08/2023
Hypokalemia
Hyponatremia
Echo: 10/20/23: EF 70%, Mild MR, aortic sclerosis
Plan:
She is back in normal sinus rhythm, and on dronedarone. Heart rate, blood pressure are satisfactory.
Recent echocardiogram shows preserved systolic function.
Restart warfarin when okay from surgical standpoint.
Bowel function is returning she is now on clear liquids.
We will continue to follow.
HPI: Patient came to [facility] yesterday with weight loss and is now admitted for colon surgery due to malignancy and cardiology has been consulted for preoperative evaluation. Patient lives in [place], [place] which is about 2 hours away from , but
her daughter lives locally in [place], [place] and brought patient to [facility] yesterday after never being previously evaluated in the system. Patient has been treated in the [facility] system and followed by cardiology there for a h/o paroxysmal Afib.
Patient does not have access to a portal with patient information, but called her steel die engraver's office to get records and they in turn asked for a medical records release further delaying access to her pertinent cardiac history. Records are being
faxed now.
Progress Note - Product Development Engineer
Subjective
Date of Service: October 23, 2023:
Daughter at bedside. Patient resides in [place]. She is uncomfortable but without specific complaints
History of PVI 3 years ago. Some confusion regarding dronedarone therapy, may have been stopped in August 2023
Allergies: Penicillin and sulfa
Outpatient medications: Aspirin, dronedarone 400 mg twice daily, fish oil, rosuvastatin 5 mg a day, warfarin, dronedarone was stopped 08/2023
Current meds: Aspirin 81 mg a day, Toradol, pantoprazole, D5 half-normal, dronedarone 400 twice daily
PMH/PSH/SH/FH: Reviewed
ROS: Negative except as above hemoglobin 8.5 platelets 238, glucose 51,
BUN/creatinine 9 and 0.6, sodium 132, potassium 3.6
Telemetry back in sinus rhythm since 9 AM on the
Objective
Labs:
10/23/23 04:04
10/23/23 04:04
Labs
Hgb 8.5 g/dL (12.0-16.0) L 10/23/23 04:04
Hct 27.0 % (37.0-47.0) L 10/23/23 04:04
Plt Count 238 10^3/uL (130-400) 10/23/23 04:04
PT 23.1 Sec (11.4-14.6) H 10/23/23 04:04
INR 2.03 10/23/23 04:04
APTT 44.7 Sec (23.4-35.0) H 10/20/23 04:09
Sodium 132 mmol/L (135-145) L 10/23/23 04:04
Potassium 3.6 mmol/L (3.5-5.1) 10/23/23 04:04
BUN 9 mg/dl (7-17) 10/23/23 04:04
Creatinine 0.6 mg/dL (0.6-1.0) 10/23/23 04:04
Glucose 51 mg/dl (70-99) L* 10/23/23 04:04
Vital Signs and I&O:
Vital Signs
Temp Pulse Resp BP Pulse Ox
36.6 C 62 18 121/71 95
10/23/23 11:10 10/23/23 11:10 10/23/23 11:10 10/23/23 11:10 10/23/23 11:10
Vital Signs
Temp Pulse Resp BP Pulse Ox
36.6 C 62 18 121/71 95
10/23/23 11:10 10/23/23 11:10 10/23/23 11:10 10/23/23 11:10 10/23/23 11:10
Intake & Output
10/21/23 10/22/23 10/23/23 10/24/23
07:59 07:59 07:59 07:59
Intake Total 1890 / 1890 1380 / 1380 1210 / 1210 240 / 240
Output Total 675 / 675 900 / 900
Balance 1215 / 1215 480 / 480 1210 / 1210 240 / 240
Physical Exam
Physical Exam
121/71, pulse 60, respirate 18, afebrile
Appears uncomfortable postop day 3, head neck exam unremarkable, lungs are clear, regular rate and rhythm without obvious murmurs, abdomen incision intact, extremities without edema, neuro nonfocal
--- NOTE | 2023-10-23 13:26 | PTCARENOTE ---
0721 BS 51 on Lab, jodie finger stick 70. OJ given. Jodie 69. Dr. aLne notified, NO fo D5/0.45% at 80mls. and another OJ jodie [phone] [id number].
when daughter Je came in she was requesting a MRI for mothers neurological w/u for dementia, she was informed that is outpt and not considered inhouse urgent. But would still pass on to doctor. Dr. Lane did agree.
--- NOTE | 2023-10-23 15:49 | CM ---
Chart reviewed
Received message from Maribeth at [facility] - received clinicals
Willing to accept when ready
CM will follow for planning
Plan - d/c to [facility] snf when medically stable - will need auth
--- NOTE | 2023-10-23 15:52 | CM ---
Chart reviewed
PT recommending home with home health vs - no need
Spoke with pts son - agreed to home health have had [facility] in past
Referral sent in care port for home needs
Plan - home with [facility] health when medically ready
[2023-10-23 21:27] LABS: Osmolality Urine 117 mOsm/kg (300-900)
[2023-10-24] MEDS: D5/0.45%NACL 1000 IV ×2 (02:21→19:20)
[2023-10-24 03:35] VITALS: BP 128/67
[2023-10-24] MEDS: TORADOL 10 MG IV ×2 (04:08→09:13)
[2023-10-24 06:00] VITALS: BMI 20.9
[2023-10-24 07:05] VITALS: BP 110/52
[2023-10-24 07:05] LABS: INR 2.45; PT 26.4 Sec (11.4-14.6)
[2023-10-24 07:09] LABS: Hematocrit 25.1 % (37.0-47.0); Hemoglobin 8.1 g/dL (12.0-16.0); Mean Corp Hgb Conc. 32.3 g/dL (33.0-37.0); Mean Corpuscular Volume 74.3 fL (81.0-99.0); Mean Platelet Volume 9.4 fL (7.4-10.4); Platelet Count 214 10^3/uL (130-400); Red Blood Cell Count 3.38 10^6/uL (4.20-5.40); Red Cell Dist. Width 17.1 % (11.5-14.5); White Blood Cell Count 4.3 10^3/uL (4.8-10.8)
[2023-10-24 07:19] LABS: Blood Urea Nitrogen 4 mg/dl (7-17); Carbon Dioxide 28 mmol/L (22-30); Chloride 100 mmol/L (98-107); Estimated Creatinine Clearance 57 ml/min; Glucose 104 mg/dl (70-99); Potassium 3.1 mmol/L (3.5-5.1); Sodium 134 mmol/L (135-145); eGFR > 60.00
[2023-10-24] MEDS: NSS (PRESERVATIVE FREE) 10 ML IV (09:11)
[2023-10-24] MEDS: PROTONIX IV 40 MG IV (09:11)
[2023-10-24] MEDS: MULTAQ 400 MG PO ×2 (09:13→20:18)
--- NOTE | 2023-10-24 09:18 | W.PN.CARDCBS ---
Today's Communication / Plan
-
PAF, mostly SR and HRs in AF/Aflutter better controlled
Continue dronederone
Resume oral anticoagulation when OK with primary team and with surgery
Maintain K 4-5 and Mg 2-3
Will sign off, please call us back if needed.
Impression / Plan
-
PCP: In [place], [place]
Cardiology: Dr. Hernandez at [facility]
Impression:
Admitted with newly diagnosed proximal ascending colon and cecal mass 10/18/23 s/p R colectomy 10/20/23
Paroxysmal Afib
Chronic warfarin OAC
Chronic Multaq therapy, stopped approx 08/2023
Hypokalemia
Hyponatremia
Echo: 10/20/23: EF 70%, Mild MR, aortic sclerosis
Plan:
PAF, mostly SR and HRs in AF/Aflutter better controlled
- Maintain dronederone
- Resume warfarin if/when OK with primary service and surgical service with goal INR 2-3
- Maintain K 4-5 and Mg 2-3
Will sign off
HPI: Patient came to [facility] yesterday with weight loss and is now admitted for colon surgery due to malignancy and cardiology has been consulted for preoperative evaluation. Patient lives in [place], [place] which is about 2 hours away from , but
her daughter lives locally in [place], [place] and brought patient to [facility] yesterday after never being previously evaluated in the system. Patient has been treated in the [facility] system and followed by cardiology there for a h/o paroxysmal Afib.
Patient does not have access to a portal with patient information, but called her sourcing analyst's office to get records and they in turn asked for a medical records release further delaying access to her pertinent cardiac history. Records are being
faxed now.
Progress Note - Environmental Technician
Subjective
Date of Service: October 24, 2023
She tells me she is feeling 'better' overall but a bit fatigued after goung to the bathroom.NO CP or SOB
Objective
Labs:
10/24/23 05:15
10/24/23 05:15
Labs
Hgb 8.1 g/dL (12.0-16.0) L 10/24/23 05:15
Hct 25.1 % (37.0-47.0) L 10/24/23 05:15
Plt Count 214 10^3/uL (130-400) 10/24/23 05:15
PT 26.4 Sec (11.4-14.6) H 10/24/23 05:15
INR 2.45 10/24/23 05:15
APTT 44.7 Sec (23.4-35.0) H 10/20/23 04:09
Sodium 134 mmol/L (135-145) L 10/24/23 05:15
Potassium 3.1 mmol/L (3.5-5.1) L 10/24/23 05:15
BUN 4 mg/dl (7-17) L 10/24/23 05:15
Creatinine 0.5 mg/dL (0.6-1.0) L 10/24/23 05:15
Glucose 104 mg/dl (70-99) H 10/24/23 05:15
Vital Signs and I&O:
Vital Signs
Temp Pulse Resp BP Pulse Ox
98.1 F 57 18 110/52 97
10/24/23 07:05 10/24/23 07:05 10/24/23 07:05 10/24/23 07:05 10/24/23 07:05
Vital Signs
Temp Pulse Resp BP Pulse Ox
98.1 F 57 18 110/52 97
10/24/23 07:05 10/24/23 07:05 10/24/23 07:05 10/24/23 07:05 10/24/23 07:05
Intake & Output
10/22/23 10/23/23 10/24/23 10/25/23
06:59 06:59 06:59 06:59
Intake Total 1380 / 1380 1210 / 1210 1999 / 1999
Output Total 900 / 900 950 / 950
Balance 480 / 480 1210 / 1210 1050 / 1050
Physical Exam
Physical Exam
Eledrly woman, no acute distress, sitting in chair
RRR, NL S1 and s2, no S3 or S4, 1/6 AHSM, no rub
Lings CTA B/L
Ext with trace pedal edema b/l
--- NOTE | 2023-10-24 09:52 | W.PN.GS2 ---
Today's Communication / Plan
-
`
Assessment / Plan
-
Assessment: 83 y/o female POD#4 s/p open RHC
AFVSS
+GI recovery, expected loose stools with RHC
Plan: full liquids with supplements - ensure; if tolerates and pt would like may advance to low residue diet
OOBTC/ambulate
INR therapeutic - monitoring H&H
Subjective Data
-
Date of Service: October 24, 2023
pt seen and examined
c/o loose stool/diarrhea
glenna clears, not much appetite, tired
voiding
Objective Data
-
Intake and Output
10/23/23 10/24/23 10/25/23
06:59 06:59 06:59
Intake Total 1210 / 1210 2000 / 2000 160 / 160
Output Total 950 / 950
Balance 1210 / 1210 1050 / 1050 160 / 160
Intake:
Oral fluids 100 / 100 1280 / 1280
IV fluids (Total) 840 / 840 720 / 720 160 / 160
IV piggybacks 270 / 270
Output:
Urine, Voided 950 / 950
Other:
Number of approximated MODERATE 2 1 1
amounts of urine
Number of approximated LARGE 1
amounts of urine
Number of unmeasured liquid
stools
Rectum 1
Vital Signs
Temp Pulse Resp BP Pulse Ox
98.1 F 57 18 110/52 97
10/24/23 07:05 10/24/23 07:05 10/24/23 07:05 10/24/23 07:05 10/24/23 07:05
Lab Results
10/24/23 05:15
10/24/23 05:15
Calcium 8.0 mg/dl (8.4-10.2) L 10/24/23 05:15
Magnesium 2.4 mg/dl (1.6-2.3) H 10/21/23 04:56
Total Bilirubin 1.1 mg/dl (0.2-1.3) 10/18/23 12:03
AST 34 U/L (14-36) 10/18/23 12:03
ALT 12 U/L (0-35) 10/18/23 12:03
Alkaline Phosphatase 67 U/L (38-126) 10/18/23 12:03
Total Protein 6.4 g/dl (6.3-8.2) 10/18/23 12:03
Albumin 3.8 g/dl (3.5-5.0) 10/18/23 12:03
Physical Exam
-
NAD AAOx3
ABD: softly protuberant, nontender, midline incision with aquacel dressing - clean
[2023-10-24 11:05] VITALS: BP 106/53
--- NOTE | 2023-10-24 12:51 | W.PN.HOSP.TC ---
Today's Communication/Plan
-
Advance diet per surgery
Assessment / Plan
Assessment / Plan
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 Underwent successful right colectomy October 20. NG tube is out, started on liquid diet, colorectal surgery managing.
Paroxysmal A-fib--> Received 3 units of FFP preop. INR corrected to 1.5-day of surgery, 2.4 today. Okay from anticoagulation from surgery standpoint but with INR of 2.4 I will hold IV heparin and Coumadin today and follow INR tomorrow. Resumed
her Multaq. Continue with beta-ar.
Hyponatremia-mild. Improved -follow for now
Hypoglycemia-asymptomatic. Not known to have diabetes mellitus. . Probably doesnt have much of glycogen stores.No known liver dz.Resolved . Tolerating diet
Moderate protein calorie malnutrition/underweight--> monitor nutrition
Acute anemia -microcytic. Hemoglobin stable at 8.1 today. Low iron saturation noted, ferritin 22. At least a component of iron deficiency anemia noted, likely due to colon mass related blood loss. B12 folic acid normal.
Hypokalemia -replete
Hyperlipidemia -on Crestor.
DVT ppx-->SCDs for now
Full code
Anticipated Discharge: 24 - 48 hours
Subjective/Interval History
-
Date of Service: October 24, 2023
Eat ok but not much ;Drinking liquids fine.
No abdo pain or nausea
Had BM
Objective Data
-
Labs:
Laboratory Results
10/24/23
05:15
WBC 4.3 L
Hgb 8.1 L
Hct 25.1 L
Plt Count 214
PT 26.4 H
INR 2.45
Sodium 134 L
Potassium 3.1 L
Chloride 100
Carbon Dioxide 28
BUN 4 L
Creatinine 0.5 L
Glucose 104 H
Calcium 8.0 L
Vital Signs:
Vital Signs
Temp Pulse Resp BP Pulse Ox
97.7 F 63 16 106/53 99
10/24/23 11:05 10/24/23 11:05 10/24/23 11:05 10/24/23 11:05 10/24/23 11:05
I&O
10/23/23 10/24/23 10/25/23
06:59 06:59 06:59
Intake Total 1210 / 1210 2000 / 1999 160 / 160
Output Total 950 / 950
Balance 1210 / 1210 1050 / 1050 160 / 160
Review of Systems
-
Respiratory: Denies Trouble Breathing
Cardiac: Denies Chest Pain
Neuro: Denies Dizzy
Physical Exam
-
General: No Apparent Distress
HEENT: Moist Mucous Membranes
Respiratory: Clear to Auscultation
Cardiac: Regular Rhythm and S1/S2
GI: Soft
Neuro: AO x 3
Psych: Calm
Data Reviewed
-
Labs: Labs Reviewed by me
[2023-10-24] MEDS: KCL 40 MEQ PO (14:30)
[2023-10-24 15:05] VITALS: BP 116/56
[2023-10-24 19:05] VITALS: BP 128/63
[2023-10-24 22:23] LABS: Urine Sodium 20 mmol/L (30-90)
[2023-10-24 23:45] VITALS: BP 131/66
[2023-10-25] VITALS (7 sets, daily range): BP systolic 93–116; BP diastolic 44–61; PULSE 66; BMI 20.9
[2023-10-25 06:01] LABS: Hematocrit 24.1 % (37.0-47.0); Mean Corp Hgb Conc. 33.2 g/dL (33.0-37.0); Mean Corpuscular Hgb 23.7 pg (27.0-31.0); Mean Corpuscular Volume 71.3 fL (81.0-99.0); Mean Platelet Volume 10.9 fL (7.4-10.4); Platelet Count 117 10^3/uL (130-400); Red Blood Cell Count 3.38 10^6/uL (4.20-5.40); Red Cell Dist. Width 17.1 % (11.5-14.5); White Blood Cell Count 3.5 10^3/uL (4.8-10.8)
[2023-10-25 06:02] LABS: INR 2.43; PT 26.3 Sec (11.4-14.6)
[2023-10-25 06:28] LABS: Blood Urea Nitrogen < 2 mg/dl (7-17); Calcium 7.8 mg/dl (8.4-10.2); Carbon Dioxide 25 mmol/L (22-30); Chloride 104 mmol/L (98-107); Estimated Creatinine Clearance 57 ml/min; Glucose 111 mg/dl (70-99); Potassium 3.6 mmol/L (3.5-5.1); Sodium 130 mmol/L (135-145); eGFR > 60.00
[2023-10-25] MEDS: NSS (PRESERVATIVE FREE) 10 ML IV (08:21)
[2023-10-25] MEDS: PROTONIX IV 40 MG IV (08:22)
[2023-10-25] MEDS: MULTAQ 400 MG PO ×2 (08:23→21:58)
[2023-10-25] MEDS: ULTRAM 50 MG PO (08:23)
--- NOTE | 2023-10-25 09:38 | W.PN.GS2 ---
Addendum entered and electronically signed by Jeffrey Hahn MD 10/25/23 09:57:
pt seen and examined with CLOCK REPAIR TECHNICIAN
glenna full liquids, mild nausea at times, +fl/BMs - less frequent loose stools
AFVSS
abd: soft, mild distention, minimal tenderness
A/P: okay for LRD as tolerated + supplements
Original Note:
Today's Communication / Plan
-
Advance to LRD
Assessment / Plan
-
Assessment: 83 y/o female POD#5 s/p open RHC
AFVSS
+GI recovery, expected loose stools with RHC
Anemia present: H/H stable
Hyponatremia: medicine team managing IVF
Plan: Advance to LRD
OOBTC/ambulate. PT following, may need rehab. Consult placed to OT
INR therapeutic - monitoring H&H. Ok for PO warfarin.
Subjective Data
-
Date of Service: October 25, 2023
Patient seen and examined at bedside with Dr. Hahn. Minimal intermittent nausea but otherwise tolerating diet. Passing flatus. Diarrhea is slowing. Feeling overall a little better today.
Objective Data
-
Intake and Output
10/24/23 10/25/23 10/26/23
06:59 06:59 06:59
Intake Total 1999 / 1999
Output Total 950 / 950
Balance 1050 / 1050 1959
Intake:
Oral fluids 1280 / 1280 1080 / 1080
IV fluids (Total) 720 / 720 880 / 880
Output:
Urine, Voided 950 / 950
Other:
Number of approximated MODERATE 1 3
amounts of urine
How many times incontinent 5
MODERATE amount urine
Number of unmeasured liquid
stools
Rectum 3
Vital Signs
Temp Pulse Resp BP Pulse Ox
98.7 F 60 14 116/60 97
10/25/23 07:05 10/25/23 07:05 10/25/23 07:05 10/25/23 07:05 10/25/23 07:05
Lab Results
10/25/23 05:02
10/25/23 05:02
Calcium 7.8 mg/dl (8.4-10.2) L 10/25/23 05:02
Magnesium 2.4 mg/dl (1.6-2.3) H 10/21/23 04:56
Total Bilirubin 1.1 mg/dl (0.2-1.3) 10/18/23 12:03
AST 34 U/L (14-36) 10/18/23 12:03
ALT 12 U/L (0-35) 10/18/23 12:03
Alkaline Phosphatase 67 U/L (38-126) 10/18/23 12:03
Total Protein 6.4 g/dl (6.3-8.2) 10/18/23 12:03
Albumin 3.8 g/dl (3.5-5.0) 10/18/23 12:03
Physical Exam
-
NAD AAOx3
ABD: softly protuberant, nontender, midline incision with aquacel dressing - clean
[2023-10-25] MEDS: D5/0.45%NACL 1000 IV (10:06)
--- NOTE | 2023-10-25 11:26 | PTCARENOTE ---
pt continues with many bouts of urgent diarrhea. skin is still intact but blanchable red. But have very poor appetite. Diet increased to LR to tempt to increase appetite/slow diarrhea. But she states food repulses her. Asking pt to try to work thru
this. Since she lost 19 pounds prior to this. A nutrition consult is probably needed. Changes Ensure juice to shakes (strawberry) by pt request. Tech offered applesauce and she did eat this.
--- NOTE | 2023-10-25 14:25 | W.PN.HOSP.TC ---
Today's Communication/Plan
-
Encourage oral intake
Check urine lytes .Follo Na.
CW PT tx
Assessment / Plan
Assessment / Plan
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 Underwent successful right colectomy October 20. NG tube is out, started on liquid diet, colorectal surgery managing- cleared for LR diet.
Pt seems to have irritable bowel symptoms -symptomatic tx with simethicone for now
Paroxysmal A-fib--> Received 3 units of FFP preop. INR corrected to 1.5-day of surgery, 2.43 today. Okay from anticoagulation from surgery standpoint but with INR of 2.4 I will hold IV heparin and Coumadin today and follow INR tomorrow. Resumed
her Multaq. Continue with beta-ar.
Check LFT due to elevated INR ;INR elevation may be nutritional.
Hyponatremia-mild. Improved and then down again . Pt on low dose IV fluids as she is not yet fully taking all her meals. Check Verena/osm to assess status .might need lasix.Wt is up.
Hypoglycemia-asymptomatic. Not known to have diabetes mellitus. . Probably doesn't have much of glycogen stores.No known liver dz.Resolved . Tolerating diet
Moderate protein calorie malnutrition/underweight--> monitor nutrition
Acute anemia -microcytic. Hemoglobin stable at 8.0 today. Low iron saturation noted, ferritin 22. At least a component of iron deficiency anemia noted, likely due to colon mass related blood loss. B12 folic acid normal.
Hyperlipidemia -on Crestor.
DW family at bedside
DVT ppx-->SCDs for now
Full code
Anticipated Discharge: > 48 hours
Subjective/Interval History
-
Date of Service: October 25, 2023
She is now cleared for LR diet
No abdo pain but has intermittent crampiness in her abdomen.
No N/V
Having BM
No fever
No SOB
Feeling weak
Objective Data
-
Labs:
Laboratory Results
10/25/23
05:02
WBC 3.5 L
Hgb 8.0 L
Hct 24.1 L
Plt Count 117 L D
PT 26.3 H
INR 2.43
Sodium 130 L
Potassium 3.6
Chloride 104
Carbon Dioxide 25
BUN < 2 L
Creatinine 0.4 L
Glucose 111 H
Calcium 7.8 L
Total Bilirubin Pending
AST Pending
ALT Pending
Alkaline Phosphatase Pending
Vital Signs:
Vital Signs
Temp Pulse Resp BP Pulse Ox
98.1 F 64 18 98/50 98
10/25/23 11:00 10/25/23 11:00 10/25/23 11:00 10/25/23 11:00 10/25/23 11:00
I&O
10/24/23 10/25/23 10/26/23
06:59 06:59 06:59
Intake Total 1999 / 1999
Output Total 950 / 950
Balance 1050 / 1050 1959
Review of Systems
-
EENT: Denies Sore Throat
Respiratory: Denies Cough
Cardiac: Denies Chest Pain
Neuro: Denies Dizzy
Physical Exam
-
General: No Apparent Distress
HEENT: Moist Mucous Membranes
Respiratory: Clear to Auscultation
Cardiac: Regular Rhythm and S1/S2
GI: Soft, Nondistended and Normal Bowel Sounds
Neuro: AO x 3
Psych: Calm
Data Reviewed
-
Labs: Labs Reviewed by me
[2023-10-25 14:46] LABS: ALT (SGPT) 17 U/L (0-35); AST (SGOT) 44 U/L (14-36); Albumin 2.2 g/dl (3.5-5.0); Alkaline Phosphatase 35 U/L (38-126); Direct Bilirubin 0.7 mg/dl (0.0-0.4); Total Bilirubin 0.8 mg/dl (0.2-1.3); Total Protein 4.4 g/dl (6.3-8.2)
[2023-10-25 16:36] LABS: Osmolality Urine 202 mOsm/kg (300-900)
[2023-10-25 16:47] LABS: Urine Sodium 42 mmol/L (30-90)
--- NOTE | 2023-10-25 19:29 | PTCARENOTE ---
pt ECG looking abnormal afib with aflutter. pt on phone. had pt hang up. took 12lead. o/n will pass on to HVAC FIELD SERVICE TECHNICIAN but rhythm sinus currently at 65.
[2023-10-26] VITALS (7 sets, daily range): BP systolic 97–137; BP diastolic 41–73; BMI 21.0
[2023-10-26 06:22] LABS: Hemoglobin 8.2 g/dL (12.0-16.0); Mean Corp Hgb Conc. 31.5 g/dL (33.0-37.0); Mean Platelet Volume 9.3 fL (7.4-10.4); Platelet Count 204 10^3/uL (130-400); Red Blood Cell Count 3.42 10^6/uL (4.20-5.40); Red Cell Dist. Width 17.1 % (11.5-14.5); White Blood Cell Count 3.3 10^3/uL (4.8-10.8)
[2023-10-26 06:27] LABS: INR 1.62; PT 19.1 Sec (11.4-14.6)
[2023-10-26 06:48] LABS: Blood Urea Nitrogen 4 mg/dl (7-17); Calcium 8.1 mg/dl (8.4-10.2); Carbon Dioxide 29 mmol/L (22-30); Chloride 97 mmol/L (98-107); Estimated Creatinine Clearance 57 ml/min; Glucose 98 mg/dl (70-99); Potassium 3.5 mmol/L (3.5-5.1); Sodium 132 mmol/L (135-145); eGFR > 60.00
--- NOTE | 2023-10-26 08:47 | W.PN.CRS1 ---
Today's Communication / Plan
-
Continue low residue diet but add Ensure
Okay for discharge from a surgical perspective
Assessment/Plan
-
POD#6 robotic right colectomy
1. Afebrile.� Vitals normal.
2. On a low residue diet. Ensure added.
3. OOB today with PT.
4. Dispo: home with VN.
5. TEDS/SCDS in place for DVT prophylaxis.
6. OR pathology pending.
7.�Okay to start Coumadin when medically appropriate.
8. Okay for discharge from our perspective when medically. She will need to follow the office in 2-week for postop appointment with Dr. Cui.
Subjective Data
Subjective Data
Date of Service: October 26, 2023
Patient states she has no complaints. She is having loose bowel movements. Her pain is controlled. She does not have much of an appetite.
Objective Data
-
Vital Signs
Temp Pulse Resp BP Pulse Ox
98.4 F 65 17 97/45 98
10/26/23 07:58 10/26/23 07:58 10/26/23 07:58 10/26/23 07:58 10/26/23 07:58
Intake & Output
10/25/23 10/26/23 10/27/23
06:59 06:59 06:59
Intake Total 1959 1020 / 1020
Balance 1959 1020 / 1020
Intake:
Oral fluids 1080 / 1080 1020 / 1020
IV fluids (Total) 880 / 880
Other:
Number of approximated MODERATE 3 3
amounts of urine
How many times incontinent 5
MODERATE amount urine
Number of unmeasured liquid
stools
Rectum 3 2
Lab Results
10/26/23 05:42
10/26/23 05:42
Physical Exam
-
General: No Acute Distress and AOx3
Abdomen: Soft, Non Distended and Non Tender
Skin: Warm and Dry
Wound: Dressing Changed
Incision: Clear, Dry, Intact
[2023-10-26] MEDS: PROTONIX IV 40 MG IV (08:50)
[2023-10-26] MEDS: NSS (PRESERVATIVE FREE) 10 ML IV (08:51)
[2023-10-26] MEDS: MULTAQ 400 MG PO ×2 (10:10→20:07)
--- NOTE | 2023-10-26 10:11 | W.PN.HOSP.TC ---
Today's Communication/Plan
-
DC
Assessment / Plan
Assessment / Plan
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 Underwent successful right colectomy October 20. NG tube is out, started on liquid diet, colorectal surgery managing- Tolerating LR diet.
Pt seems to have irritable bowel symptoms -symptomatic tx with simethicone for now
Paroxysmal A-fib--> Received 3 units of FFP preop. INR corrected to 1.5-day of surgery, 1.6 today. Okay from anticoagulation from surgery standpoint . Start on coumadin today. Resumed her Multaq. Continue with beta-ar.
LFT noted ;INR elevation may be nutritional.
Hyponatremia-mild. Improved. Rpt Verena/osm noted . Follow for now
Moderate protein calorie malnutrition/underweight--> monitor nutrition
Acute anemia -microcytic. Hemoglobin stable at 8.2 today. Low iron saturation noted, ferritin 22. At least a component of iron deficiency anemia noted, likely due to colon mass related blood loss. B12 folic acid normal.
Hyperlipidemia -on Crestor.
DW daughter at bedside
DVT ppx-->SCDs for now
Full code
Medically stable for discharge to rehab.
Case management to facilitate transfer to her rehab facility in [facility].
Discussed with patient/daughter about pending pathology report which she should follow with PCP up there and if positive get an oncology referral or follow-up with the surgeons here regarding her pending pathology report and get appropriate
referrals.
Total time of discharge 35 minutes
Anticipated Discharge: Today
Subjective/Interval History
-
Date of Service: October 26, 2023
Tolerating diet. Loose stools but not frequent .
Objective Data
-
Labs:
Laboratory Results
10/26/23
05:42
WBC 3.3 L
Hgb 8.2 L
Hct 26.0 L
Plt Count 204 D
PT 19.1 H
INR 1.62
Sodium 132 L
Potassium 3.5
Chloride 97 L
Carbon Dioxide 29
BUN 4 L
Creatinine 0.5 L
Glucose 98
Calcium 8.1 L
Vital Signs:
Vital Signs
Temp Pulse Resp BP Pulse Ox
98.4 F 65 17 97/45 98
10/26/23 07:58 10/26/23 07:58 10/26/23 07:58 10/26/23 07:58 10/26/23 07:58
I&O
10/25/23 10/26/23 10/27/23
06:59 06:59 06:59
Intake Total 1959 1020 / 1020
Balance 1959 1020 / 1020
Review of Systems
-
Constitutional: Denies Fever
EENT: Denies Sore Throat
Respiratory: Denies Trouble Breathing
Cardiac: Denies Chest Pain
Neuro: Denies Dizzy
Physical Exam
-
General: No Apparent Distress
HEENT: Moist Mucous Membranes
Respiratory: Clear to Auscultation
Cardiac: S1/S2 and Irregular Rhythm; Negative Tachycardic
GI: Soft, Nontender, Nondistended, Normal Bowel Sounds and Other (dressing intact)
Neuro: AO x 3
Psych: Calm; Negative Confused
Data Reviewed
-
Labs: Labs Reviewed by me
--- NOTE | 2023-10-26 10:18 | W.DS.TRANS ---
DC Summary - Tribal Delegate
-
Discharge Instructions:
Sleep Apnea Risk Low
Discharge Diagnosis/Procedures Obstructing cecal mass status post robotic right
hemicolectomy 10/20; paroxysmal A-fib on
Coumadin
Diet Low Fiber,As tolerated
Activity No strenuous activity
Additional Activity Do not lift more than 10 pounds (gallon of milk)
for the next 4-6 weeks
Bathing Restrictions OK to Shower
Blood Work BMP and CBC in one week;INR in 2-3 days
Other Services PT
Wound Care Cover your incision with dry gauze dressing as
needed for drainage. Return to your surgeon's
office 2-3 weeks from surgery for removal of
karlos
Instructions:
Stand-Alone Forms:
Changes to Home Medications: No
Discharge Medications:
DC Medications w/original date entered in [facility]
aspirin 81 mg tablet,delayed release 81 mg PO DAILY Blood Clot Prevention/Tx 10/18/23
dronedarone 400 mg tablet (Multaq) 400 mg PO BID Arrhythmia 10/18/23
omega 5-jkz-gha-fish oil 1,200 mg (144 mg-216 mg) capsule (Fish Oil) 1 cap PO DAILY Supplement 10/18/23
rosuvastatin 5 mg tablet (Crestor) 5 mg PO QPM High Cholesterol 10/18/23
therapeutic multivitamin 1 tab PO DAILY Supplement 10/18/23
vitamin A-vitamin C-vit E-min tablet 1 tab PO DAILY Supplement 10/18/23
warfarin 2 mg tablet 2 mg PO SUMOTUTHFR@1700 Blood Clot Prevention/Tx 10/18/23
warfarin 3 mg tablet 3 mg PO SUWE@1700 Blood Clot Prevention/Tx 10/18/23
acetaminophen 500 mg tablet (Tylenol Extra Strength) 1,000 mg PO Q6HPRN PRN mild pain #1 tab 10/26/23
Home Medication Changes
Pending Results: Yes
Additional Pending Results:
Colon pathology report
--- NOTE | 2023-10-26 10:47 | CM ---
Addendum entered by [employer] 10/26/23 15:57:
CM received a phone call from [facility] insurance claims clerk Bibiana and she stated pt is approved for SNF level of care at [facility] for 3 initial days starting today 10/26/23 till 10/28/23, auth#: [id number];
ref#: [id number], [facility] coordinator Laina Bellamy: phone: [phone], Clinical for additional days fax: [phone].
Auth information provided to [facility] director of litigation Maribeth and early discharge time requested.
rearranged transportation with [facility] for tomorrow 10/27/23 with sheepskin pickler time 10:00 a.m. PMNC completed and left with . No ambulance auth required.
[facility] nursing report: [phone]
Discharge instructions fax: [phone].
D/C plan: [facility] tomorrow 10/27/23.
Addendum entered by [employer]andsaveroyceCracklemarcella 10/26/23 14:56:
Per transportation arranged with [facility] for tomorrow with sheepskin pickler time 1:00 p.m. [facility] auth will be obtained by tomorrow morning.
Both pt and her daughter Alejandra are aware of then above
[facility] director of litigation Maribeth is aware of potential pt's discharge tomorrow and an auth.
[facility] nursing report: [phone]
Discharge instructions fax: [phone].
D/C plan: [facility] when an auth available, probably tomorrow.
CM will follow to assist pt with discharge to [facility].
Addendum entered by [employer] AmolCracklemarcella 10/26/23 11:47:
CM spoke to [facility] SN[facility] director of litigation Maribeth and she stated that pt is accepted for admission today, full medical record requested to be faxed to [phone] and an auth requested. UC to fax pt's clinical to [facility]
CM called [facility], found out that pt has [employer], called them [phone] and is was confirmed that pt has [employer], SNF auth required and ambulance auth does not require. CM was forwarded to [facility] [phone]. CM
called [facility], spoke to client services representative Rylee, a case for SNF request initiated. Reference number is: [id number]. Requested clinical faxed to [facility] provided fax: [phone].
Awaiting for an auth from [facility] [employer]. .
At this point it is not clear when an auth will be available and pt must be at [facility] by 6:00 p.m. CM spoke to transpprt coordinator and UC will arrange transport for tomorrow .
D/C plan: [facility] when an auth available, probably tomorrow 10/27/23.
CM will follow to assist pt with discharge to [facility]
Original Note:
CM following re: discharge planning.
Reviewed pt's chart, met with pt and spoke to pt's daughter Alejandra over the phone to update on discharge plan progress.
Discharge order is noted. Both pt and her daughter are aware, expressed their disappointment regarding discharge, IMM reviewed, placed in chart, pt has a copy. Pt's daughter requested pt be transported by ambulance and it [place] [address] and
pt must be at their facility before 6:00 p.m. . CM spoke to transport coordination regarding pt's possible discharge and availability of the ambulance transport.
KATHERINE spoke to [facility] admissions department Maribeth [phone] and requested pt's clinical with updated PT/OT philip faxed to provided fax number: [phone]. per Maribeth, their infertility medical assistant will review updated clinical and she will
let me know. Awaiting for determination.
[facility]
Accepting physician
CM will obtain an auth from [place] [id number] for SNF level of care and an ambulance.
D/C plan: [facility] when pt is accepted and an auth is obtained.
CM will follow to assist pt with discharge to [facility].
--- NOTE | 2023-10-26 16:32 | W.DCSUMMARY ---
Addendum entered and electronically signed by Edi Lane MD 10/27/23 16:02:
Additional Primary diagnosis
- Severe protein calorie malnutrition
Addendum entered and electronically signed by Edi Lane MD 10/27/23 11:54:
Date of discharge 10/27/2023
Patient was cleared for discharge yesterday but could not be placed back in a facility till today.
Original Note:
Discharge Summary
Discharge Data
Date of Admission: 10/18/23
Date of Discharge: 10/26/23
-
Pending Results: No
Hospital Course
Primary diagnosis:
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
Acute anemia
Secondary diagnosis:
Paroxysmal atrial fibrillation
Hospital course:
Patient presented obstructing cecal mass with associated proximal small bowel obstruction. Suspected malignancy. Underwent successful right colectomy on October 20. She had no immediate postoperative complications other than anemia which was
stable around 8. Did not require transfusion.
She was seen by cardiology for A-fib and when stable Coumadin dose reintroduced. She had mild hyponatremia which resolved.
She lives in [facility] ,was brought down here by daughter and then got admitted to [facility]. She would be heading back to her facility in [facility]. Daughter was advised to to follow pathology report with the PCP
and get an oncology referral or follow-up with the primary surgeons at [facility].
Consultants on board:
Colorectal surgery-Dr. Cui
Cardiology-Dr. Mejias
Discharge Plan
-
Patient Disposition: Senior Living/SNF
Discharge Diagnosis/Procedures: Obstructing cecal mass status post robotic right hemicolectomy 10/20; paroxysmal A-fib on Coumadin
Diet: As tolerated and Low Fiber
Activity: No strenuous activity
Additional Activity: Do not lift more than 10 pounds (gallon of milk) for the next 4-6 weeks
Bathing Restrictions: OK to Shower
Blood Work: BMP and CBC in one week;INR in 2-3 days
Other Services: PT
Wound Care: Cover your incision with dry gauze dressing as needed for drainage. Return to your surgeon's office 2-3 weeks from surgery for removal of karlos
Activity Restrictions/Additional Instructions:
Call your surgeon if you develop nausea with vomiting, worsening abdominal pain or a fever >100.5
Referrals:
Marko Cui MD [Active] - in two weeks
UNKNOWN - PT DOES,NOT KNOW [Family Provider] - (follow with PCP in one week)
Prescriptions:
New
acetaminophen [Tylenol Extra Strength] 500 mg Tablet
1,000 mg PO Q6HPRN PRN (Reason: mild pain) Qty: 1 0RF
Continued
therapeutic multivitamin Tablet
1 tab PO DAILY
aspirin 81 mg Tablet,Delayed Release (Dr/Ec)
81 mg PO DAILY
warfarin 3 mg Tablet
3 mg PO SUWE@1700
warfarin 2 mg Tablet
2 mg PO SUMOTUTHFR@1700
vitamin A-vitamin C-vit E-min Tablet
1 tab PO DAILY
rosuvastatin [Crestor] 5 mg Tablet
5 mg PO QPM
Multaq 400 mg Tablet
400 mg PO BID
omega 9-did-dwg-fish oil [Fish Oil] 1,200 (144-216) mg Capsule
1 cap PO DAILY
Discharge Orders:
Discharge Patient (As Directed); Ordered 10/26/23
Ordered By: Edi Lane
[2023-10-27 03:00] VITALS: BP 121/61
[2023-10-27 06:00] VITALS: BMI 20.6
[2023-10-27 07:49] VITALS: BP 123/53
[2023-10-27] MEDS: NSS (PRESERVATIVE FREE) 10 ML IV (08:05)
[2023-10-27] MEDS: PROTONIX IV 40 MG IV (08:05)
[2023-10-27] MEDS: MULTAQ 400 MG PO (08:05)
--- NOTE | 2023-10-27 09:02 | CM ---
CM following re:discharge planning.
Reviewed pt's chart, met with pt.
This note is to confirm that pt will be discharged to [facility] today.
Transportation confirmed worm picker time 10:00a.m. [facility] ambulance. Pt's daughter is aware of a possible ambulance transport co-pay.
Both pt, her daughter Alejandra RN, [facility] admissions department event sales representative Maribeth are aware of discharge time.
[facility] nursing report: [phone]
Discharge instructions fax: [phone].
D/C plan: [facility]
== END 2023-10-27 10:55 | DRG 329 ==
LOC: 2 SOUTH 19:25
PROVIDERS: Emergency Medicine; Hospitalist; Registered Nurse; Surgery; ADMITTING PHYSICIAN Internal Medicine; ATTENDING PHYSICIAN Internal Medicine; CONSULT PHYSICIAN Internal Medicine Cardiovascular Disease; CONSULT PHYSICIAN Surgery; EMERGENCY PHYSICIAN Emergency Medicine
PROC: 30233K1 Transfusion of Nonautologous Frozen Plasma into Peripheral Vein, Percutaneous Approach (ICD-10-PCS; 2023-10-19)
PROC: 0DTF0ZZ Resection of Right Large Intestine, Open Approach (ICD-10-PCS; 2023-10-20)
DX: C18.0 Malignant neoplasm of cecum (principal); E43 Unspecified severe protein-calorie malnutrition; E87.1 Hypo-osmolality and hyponatremia; D62 Acute posthemorrhagic anemia; N39.0 Urinary tract infection, site not specified; I48.92 Unspecified atrial flutter; E87.20 Acidosis, unspecified; I48.0 Paroxysmal atrial fibrillation; L89.312 Pressure ulcer of right buttock, stage 2; E87.6 Hypokalemia; B96.20 Unspecified Escherichia coli [E. coli] as the cause of diseases classified elsewhere; Z68.20 Body mass index [BMI] 20.0-20.9, adult; Z79.01 Long term (current) use of anticoagulants
CPT/HCPCS: 88309; 74177; 80048; 80053; 80076; 81003; 81015; 82378; 82607; 82728; 82746; 82962; 83540; 83550; 83690; 83735; 83935; 84300; 85025; 85027; 85610; 85730; 86850; 86900; 86901; 86920; 87077; 87086; 87186; 88342; 93005; 93306; 96361; 96374; 96375; 97110; 97116; 97162; 97167; 97530; 99285; J1335; P9059; Q9967